=== PATIENT | male | born 1960 | race Caucasian/White ===

== ENCOUNTER → 2020-02-15 13:35 | Outpatient (BNVA) | payer MEDICARE, MEDICAID, SELFPAY | PROVIDERS: PCP Family Medicine; Referring Provider Family Medicine; Visit Provider Physician Assistant | DX: Z01.818 Encounter for other preprocedural examination (principal) | CPT/HCPCS: 99212 ==

== ENCOUNTER 2020-05-26 10:55 | Day surgery (SDC) | payer MEDICARE, MEDICAID, SELFPAY ==
--- NOTE | 2020-05-26 10:51 | P.CONAN_ITS ---
FORM[facility]LY [facility], [facility] Active Problems Active Problems: All Active Problems (Updated 03/30/20 @ 10:00 by Dariana small) Encounter for screening colonoscopy (Acute) Insomnia (Acute) History of substance abuse (Acute) Genital herpes in men (Acute) Dyslipidemia (Acute) Failed back syndrome (Acute) Erectile dysfunction (Acute) Past Medical History Medical History Depression Dyslipidemia Erectile dysfunction Failed back syndrome Genital herpes in men History of substance abuse Insomnia Family History Family History Father No problems noted. Mother Diabetes Brother HIV (human immunodeficiency virus infection) Hospice care patient Daughter Lupus Surgical History Surgical History H/O colonoscopy History of lumbar spinal fusion Social History Social History Alcohol intake: never Smoking Status: Former smoker Tobacco Type: Cigarette Substance Use Type: Crack/Cocaine, Former Substance User, Heroin and Marijuana Advance Directives: No Advance Directives Information Provided: Yes Meds Allergies Allergy/AdvReac Type Severity Reaction Status Date / Time No Known Allergies Allergy Verified 02/09/20 13:27 [No Known Allergies*] Home Medications Medication Instructions Recorded Confirmed Last Taken Type docusate sodium 100 mg capsule 100 mg PO DAILY 02/09/20 02/15/20 Unknown History methadone 10 mg/5 mL oral solution 105 mg PO DAILY ml 02/09/20 03/24/20 Unknown History gabapentin 600 mg tablet 600 mg PO TID 02/14/20 03/24/20 Unknown History Exam Exam Date and Time: May 26, 2020 1051 Airway Mallampati Class: II TM Dist: >3cm Neck ROM: Full Heart: RRR Lungs: CTA
[2020-05-26 11:07] VITALS: BP 124/85; PULSE 100; RESP 18; TEMP 36.3; O2SAT 97
[2020-05-26 11:22] VITALS: BMI 22.8
--- NOTE | 2020-05-26 11:34 | MHC.SHP ---
Pre-Procedural Eval Section B Chief Complaint: screening Details of Present Illness: Colon cancer screening/10 year interval No clinical changes since preprocedure visit Relevant Family History (Specify if Yes): No Relevant Social History: Tobacco Use (Former) Present Medications: see Short Stay Collaborative assessment Medical History: Significant History (Methadone maintainance, Hx substance abuse, Chronic back pain, ?Anxiety/depressive disorder) History of Previous Operations: Relevant previous surgery/procedure and date(s) (Spinal fusion, colonoscopy--10 yr ago-[facility]) Allergies: Allergies Allergy/AdvReac Type Severity Reaction Status Date / Time No Known Allergies Allergy Verified 02/09/20 13:27 [No Known Allergies*] Review of Systems Sugical H&P ROS: Negative: Constitution, Cardiovascular, Respiratory and Gastrointestinal and Yes, Specify: Psychiatric (?DX;Hx substance abuse) Exam Surgical H&P Exam: Normal: HEENT, Normal: Heart, Normal: Lungs, Normal: Extremities and Normal: Abdomen Plan Diagnosis/Plan: Unchanged I have reviewed the history and physical and performed a pertinent physical examination on my patient. No changes have occurred unless specified.Yes
[2020-05-26] MEDS: Lactated Ringers 1,000 ML 50 ML IVCONT (11:42)
[2020-05-26 12:19] VITALS: BP 83/57; PULSE 87; RESP 16; TEMP 36.6; O2SAT 94
--- NOTE | 2020-05-26 12:25 | PM.OP ---
Brief Operative Note Date of Service: 05/26/20 Pre-op diagnosis: COLON CANCER SCREENING-NON HIGH RISK Post-op diagnosis: other (NEGATIVE EXAM) Procedure: COLONOSCOPY Implants: NONE Surgeon: Jaymie Mcwilliams MD Anesthesia: MAC (MD MACK) Estimated blood loss (mL): 0 Pathology: none sent Condition: stable Disposition: PACU
[2020-05-26 12:26] VITALS: BP 97/64; PULSE 79; RESP 16; O2SAT 93
--- NOTE | 2020-05-26 12:29 | W.PM.OPN ---
Operative Note Operative Note Date of Service: 05/26/20 Narrative: Pre-op diagnosis: COLON CANCER SCREENING-NON HIGH RISK Post-op diagnosis: other (NEGATIVE EXAM) Procedure: COLONOSCOPY Implants: NONE Surgeon: Jaymie Mcwilliams MD Anesthesia: MAC (MD MACK) FINDINGS: DAFNE: PROSTATE NORMAL, SLIGHT DECREASED SPHINCTER TONE Scope inserted with no difficulty. Advanced easily through sigmoid, descending, transverse,ascending colon into the cecum. PREP: GOOD. AO AND VALVE WELL SEEN GOOD ROTATIONAL VIEWS ON WITHDRAWING SCOPE: NO MUCOSAL LESIONS WERE SEEN. ARV-CLEAR Estimated blood loss (mL): 0 Pathology: none sent Condition: stable Disposition: PACU PLAN: REPEAT ASYMPTOMATIC SCREENING IN 10 YEARS.
[2020-05-26 12:34] VITALS: BP 100/69; PULSE 73; RESP 16; O2SAT 96
== END 2020-05-26 13:15 | disposition home or self-care (01) ==
PROVIDERS: Visit Provider Internal Medicine Gastroenterology
PROC: 0DJD8ZZ Inspection of Lower Intestinal Tract, Via Natural or Artificial Opening Endoscopic (ICD-10-PCS; CPT 45378; principal; 2020-05-26 12:10)
DX: Z12.11 Encounter for screening for malignant neoplasm of colon (principal); Z87.891 Personal history of nicotine dependence; N52.9 Male erectile dysfunction, unspecified; M96.1 Postlaminectomy syndrome, not elsewhere classified; B00.9 Herpesviral infection, unspecified; Z79.899 Other long term (current) drug therapy
CPT/HCPCS: G0121

== ENCOUNTER → 2020-06-16 08:14 | Outpatient (BNVA) | payer MEDICARE, MEDICAID, SELFPAY | PROVIDERS: PCP Internal Medicine; Visit Provider Physician Assistant | DX: Z13.89 Encounter for screening for other disorder (principal) | CPT/HCPCS: 99212 ==

== ENCOUNTER 2020-11-25 09:46 | Outpatient (REF) | payer OTHER, SELFPAY ==
[2020-11-25 10:48] LABS: MANUAL DIFF FLAG NO
[2020-11-25 10:54] LABS: Basophils Percent Auto 0.1 % (0-2); Eosinophils Percent Auto 0.4 % (0-4); Hematocrit 40.6 % (42-52); Hemoglobin 13.7 g/dl (14.0-18.0); Imm Gran Abs Auto 0.05 X10*3/uL (0.00-0.03); Imm Gran Pct Auto 0.5 % (0.0-0.4); Lymphocytes Absolute Auto 0.8 X10*3/uL (1.2-4.9); Lymphocytes Percent Auto 7.1 % (20-40); Mean Corpuscular HGB Conc 33.7 g/dl (31.0-36.0); Mean Corpuscular Hemoglobin 29.8 pg (27.0-33.0); Mean Corpuscular Volume 88.3 fL (80-98); Mean Platelet Volume 9.2 fL (9.4-12.4); Monocytes Absolute Auto 0.4 X10*3/uL (0.1-1.2); Monocytes Percent Auto 3.5 % (2-11); Neutrophils Absolute Auto 9.8 X10*3/uL (2.0-8.3); Neutrophils Percent Auto 88.4 % (45-73); Platelet Count 228 X10*3/uL (160-400); Red Cell Distribution Width 13.1 % (11.0-16.0); White Blood Count 11.1 X10*3/uL (4.8-10.8)
[2020-11-25 11:05] LABS: Glucose Urine UA NEG (NEG); Leukocyte Esterase Urine NEG (NEG); Nitrite Urine NEG (NEG); Specific Gravity - Urine 1.015 (1.005-1.025); Urine Blood NEG (NEG); Urine Ketones NEG (NEG); Urine Protein NEG (NEG-TRACE)
[2020-11-25 11:11] LABS: Appearance Urine CLEAR; Color Urine YELLOW
[2020-11-25 11:23] LABS: Alanine Aminotransferase 14 U/L (0-40); Albumin Level 4.3 g/dL (3.5-5.0); Alkaline Phosphatase 58 U/L (39-117); Anion Gap 13 (12-20); Aspartate Amino Transferase 18 U/L (5-37); Bilirubin Total 0.8 mg/dL (0.0-1.0); Blood Urea Nitrogen 22 mg/dL (9-16); Calcium 9.8 mg/dL (8.4-10.2); Carbon Dioxide 29 mmol/L (22-29); Chloride 102 mmol/L (96-108); Cholesterol 216 mg/dL; Estimated Glomerular Filt Rate > 60; Glucose Fasting 138 mg/dL (60-99); HDL Cholesterol 80 mg/dL; LDL Cholesterol Calculated 130 mg/dl; Potassium 4.6 mmol/L (3.3-5.1); Sodium 139 mmol/L (135-145); Total Protein 7.2 g/dL (6.5-8.0); Triglycerides 31 mg/dL
[2020-11-25 11:38] LABS: HIV AB/AG Nonreactive (Nonreactive); HIV Num 1 0.06 S/CO (0.00-0.99)
[2020-11-25 11:44] LABS: Prostate Specific Antigen 0.24 ng/mL (<0.05-4.0); TSH reflex Free T4 0.71 uIU/mL (0.32-4.0)
[2020-11-25 11:47] LABS: Syphilis Screen Nonreactive (Nonreactive)
[2020-12-01 16:21] LABS: HSV 1 IgM IFA Negative (Negative); HSV 2 IgM IFA Negative (Negative)
== END 2020-11-25 09:47 | disposition home or self-care (01) ==
LOC: HO.LAB 09:46
PROVIDERS: PCP Internal Medicine; Visit Provider Internal Medicine
DX: N40.0 Benign prostatic hyperplasia without lower urinary tract symptoms (principal); A60.02 Herpesviral infection of other male genital organs; M96.1 Postlaminectomy syndrome, not elsewhere classified; E78.5 Hyperlipidemia, unspecified; N52.9 Male erectile dysfunction, unspecified; Z11.3 Encounter for screening for infections with a predominantly sexual mode of transmission
CPT/HCPCS: 36415; 80053; 80061; 81003; 84153; 84443; 85025; 86695; 86696; 86780; 87389

== ENCOUNTER 2021-02-20 10:22 | Outpatient (AMB) | payer OTHER, SELFPAY ==
--- NOTE | 2021-02-20 10:30 | MHC.PC.OV ---
Vital Signs 02/20/21 10:31 Height 5 ft 9 in Weight 155 lb BMI 22.8 BP 124/70 Blood Pressure Location Lt brachial Position Sitting Pulse 86 Pulse Source Pulse Oximeter Temp 97.3 F Temp Source Temporal Artery Scan Pulse Oximetry (%) 95 Oxygen Delivery Method Room Air Intake Visit Reasons: 4M Follow UP Office Electrician Required: No Accompanied by: Self / Same As Patient Allergies No Known Allergies (No Known Allergies*) Allergy (Verified 02/05/22 12:01) Medication List - Last Reconciled 02/20/21 by Fco Jaquez MD amitriptyline 75 mg PO BEDTIME baclofen 10 mg PO TID bupropion HCl 300 mg PO QAM docusate sodium (Colace) 200 mg (2 x 100 mg) PO BEDTIME gabapentin 800 mg PO TID 30 days methadone 55 mg PO DAILY mirtazapine 7.5 mg PO BEDTIME sildenafil 50 mg PO DAILY 30 days PRN trazodone 200 mg (2 x 100 mg) PO BEDTIME valacyclovir 500 mg PO DAILY Tobacco use date assessed: 10/18/20 HPI 4M Follow UP HPI Details Patient comes in today for his follow up visit States that he missed both of his appts. with [facility] a couple of months ago and was advised not to call for appointments anymore Have offered to refer patient to another pain management practice but he declined States that he is currently back on Methadone at 55 mg daily Notes that Gabapentin 600 mg TID used to help some but states that it does not seem to be helping much anymore lately Adds that he has been having problems getting an erection and would like to know what he can do for this, whether he needs to see a specialist or not Relates (+) fatigue but denies any headaches or dizziness Denies any chest pains, no SOB No nausea/vomiting, no abdominal pain No change in bowel habits noted Had some labs done a few months ago - to discuss his results [facility] Medical History (Updated 08/07/21 @ 15:00 by CHACE MarleyC) Chronic pain Opioid use disorder, severe, dependence Severe recurrent major depression Intentional overdose Impaired fasting glucose Chronic constipation Depression Insomnia History of substance abuse Genital herpes in men Dyslipidemia Failed back syndrome Erectile dysfunction Surgical History H/O colonoscopy History of lumbar spinal fusion Family History Father No problems noted. Mother Diabetes Brother HIV (human immunodeficiency virus infection) Hospice care patient Daughter Lupus Other Substance abuse Social History Household Members: Spouse Household Members Other:: Lives alone Housing: House Do you presently have visiting nurse or other home services: No Alcohol intake: never Patient Tobacco Use Status: Former Tobacco user e-Cigarette/Vaping Use: Never Used Second Hand Smoke Exposure: No Substance Use Type: Heroin and Marijuana service: No Current occupational status: disabled Sexual orientation: Straight/Heterosexual Cognitive needs: No Hearing needs: No Vision needs: No Questionnaire PHQ-9 Over the last 2 weeks, how often have you been bothered by any of the following problems? 1. Little interest or pleasure in doing things: several days 2. Feeling down, depressed, or hopeless: several days 3. Trouble falling or staying asleep, or sleeping too much: not at all 4. Feeling tired or having little energy: several days 5. Poor appetite or overeating: not at all 6. Feeling bad about yourself - or that you are a failure or have let yourself or your family down: not at all 7. Trouble concentrating on things, such as reading the newspaper or watching television: not at all 8. Moving or speaking so slowly that other people could have noticed. Or the opposite - being so fidgety or restless that you have been moving around a lot more than usual: not at all 9. Thoughts that you would be better off or of hurting yourself in some way: not at all Total score: 3 Depression Screening Interpretation: Positive Depression Screening Follow-up: Existing condition and In treatment 73013 - PHQ-9 Billing: Yes Source: Developed by Drs. Wilmer Gee, Darling Mejia, Juan Vidales and colleagues, with an educational saniya from [employer] Thrive Questionnaire Date Thrive assessed: 10/18/20 What is your living situation today?: I have a steady place to live Within the past 12 months, did the food you bought not last and you didn't have the money to get more?: Never true Within the past 12 months, did you worry whether your food would run out before you got money to buy more?: Never true Do you have trouble paying for medicines?: No Do you have trouble getting transportation to medical appointments?: No Do you have trouble paying your heating and electricity bill?: No Do you have trouble taking care of your child, family member or friend?: No Do you have trouble with day-to-day activities such as bathing, preparing meals, shopping, managing finances, etc.?: No Are you currently unemployed and looking for a job?: No Are you interested in more education?: No Currently or been in a relationship where the following occur: no concerns reported AUDIT C Alcohol Use Questionnaire (AUDIT-C) 1. How often do you have a drink containing alcohol?: 2-4 times a month 2. How many drinks containing alcohol do you have on a typical day when you are drinking?: 1 or 2 3. How often do you have six or more drinks on one occasion?: Never Total Score: 2 Score Reviewed/Action Taken: Yes Review of Systems Const Denies chills, Reports difficulty sleeping, Reports fatigue, Denies fever(s) and Denies headache(s) ENT Denies headache(s), Reports neck pain, Denies odynophagia, Denies sinus pain and Denies sore throat Card Denies chest pain, Denies palpitations and Denies dyspnea Resp Denies cough and Denies dyspnea GI Denies abdominal pain, Denies constipation, Denies heartburn, Denies diarrhea, Denies nausea, Denies odynophagia and Denies vomiting Reports erectile dysfunction (getting worse), Denies dysuria and Denies nocturia Musc Reports back pain (chronic - increasing lately) and Reports neck pain Neuro Denies headache(s) Psych Reports anxiety and Reports depression Endo Reports fatigue and Denies palpitations Physical exam (Primary Care) Vital Signs: Last Vital Signs Temp 97.3 F 02/20/21 10:31 Pulse 86 02/20/21 10:31 BP 124/70 02/20/21 10:31 Pulse Ox 95 02/20/21 10:31 Oxygen Delivery Method Room Air 02/20/21 10:31 BMI result Body Mass Index 22.8 Tobacco/Smoking Status: Tobacco use Status Tobacco use date assessed 10/18/20 02/20/21 10:34 Patient Tobacco Use Status Former Tobacco user 02/20/21 10:34 e-Cigarette/Vaping Use Never Used 02/20/21 10:34 PHQ-9: PHQ-9 Score PHQ-9: Total score 3 02/20/21 11:58 Depression Screening Interpretation: Positive Depression Screening Follow-up: Existing condition and In treatment Thrive Assessment: Date of Thrive Assessment Date Thrive assessed 10/18/20 02/20/21 10:34 Currently or been in a relationship where the following occur: no concerns reported Const General: no acute distress and alert HENMT Ears: TM's normal bilaterally Throat: Yes posterior oropharynx normal and Yes tonsils normal (no TP congestion noted) Neck Neck: Yes no lymphadenopathy and Yes supple Resp Auscultation: clear to auscultation bilaterally, no rales and no wheezes Cardio Rate: regular rate Rhythm: regular rhythm Heart sounds: no murmurs GI Palpation (GI): Soft to palpation, nontender and No hepatosplenomegaly present Back/Spine/Pelvis Cervical Spine: Cervical spine tenderness Thoracic/Lumbar Spine: lumbar spinal tenderness Extrem Other: (+) superficial varicosities noted over both lower legs posteriorly, especially over the right leg General: Yes no clubbing, cyanosis or edema Office Procedures Flu Questionnaire Does the patient have a severe egg allergy?: No Does the patient have severe life threatening allergies?: No Does the patient have a fever or illness today?: No Has the patient ever had Guillain-Wells Syndrome?: No Has the patient ever had any past reaction to a flu shot?: No Immunizations flu vacc [id number] 6mos up(PF) 60 mcg(15 mcgx4)/0.5 mL IM syringe Performing Provider: Fco Jaquez MD [facility] Administered by: JANAE Blandon on 02/20/21 10:37 Dose Route Admin Location Dispensed Lot Number Expiration Date NDC Shuttle Hand 0.5 mL IM Left Deltoid 0.5 mL [id number] 10/05/21 15653-445-40 [employer] Total Dispensed Waste n/a 0 % VIS Given Date VIS Provided VIS Publication Date 02/20/21 Single Vaccine 20 Eligibility Eligibility Date Funding Source Not [facility] Eligible 02/20/21 Private Results Reviewed Results Reviewed: Laboratory Tests 11/25/20 11/25/20 11/25/20 10:12 10:12 10:28 WBC 11.1 H Hgb 13.7 L Hct 40.6 L Plt Count 228 Sodium 139 Potassium 4.6 Creatinine 0.93 Estimated GFR > 60 Fasting Glucose 138 H Calcium 9.8 AST 18 ALT 14 Triglycerides 31 Cholesterol 216 LDL Cholesterol, Calc 130 HDL Cholesterol 80 Prostate Specific Ag 0.24 TSH 0.71 Ur Specific [place] 1.015 Urine Protein NEG Urine Glucose (UA) NEG Urine Blood NEG Coding Level of Care Code Admin Sign Off/No Billing Diagnoses Erectile dysfunction, unspecified erectile dysfunction type N52.9 Erectile dysfunction type: unspecified Dyslipidemia E78.5 Failed back syndrome M96.1 History of substance abuse F19.11 Chronic constipation K59.09 Insomnia, unspecified type G47.00 Insomnia type: unspecified Episode of recurrent major depressive disorder, unspecified depression episode severity F33.9 Active/Remission status: currently active Depression Type: major depressive disorder Major depression episode severity: unspecified Major depression recurrence: recurrent Additional Codes PHQ-9 - 07577 - PHQ-9 Billing: Yes ([id number])
[2021-02-20 10:31] VITALS: BP 124/70; PULSE 86; TEMP 36.3; O2SAT 95; BMI 22.8
== END 2021-02-20 11:18 | disposition home or self-care (01) ==
LOC: HO.HMGH 10:22
PROVIDERS: PCP Internal Medicine; Visit Provider Internal Medicine
DX: N52.9 Male erectile dysfunction, unspecified (principal); E78.5 Hyperlipidemia, unspecified; M96.1 Postlaminectomy syndrome, not elsewhere classified; F19.11 Other psychoactive substance abuse, in remission; K59.09 Other constipation; G47.00 Insomnia, unspecified; F33.9 Major depressive disorder, recurrent, unspecified
CPT/HCPCS: 96127; 99499

== ENCOUNTER → 2021-06-21 13:06 | Outpatient (REF) | payer OTHER, SELFPAY ==
[2021-06-21 13:22] LABS: MANUAL DIFF FLAG NO
--- NOTE | 2021-06-21 13:23 | ECG_ITS ---
Test Reason : F19.11 Blood Pressure : / mmHG Vent. Rate : 087 BPM Atrial Rate : 087 BPM P-R Int : 176 ms QRS Dur : 088 ms QT Int : 370 ms P-R-T Axes : 077 069 068 degrees QTc Int : 445 ms Normal sinus rhythm Normal ECG When compared with ECG of 31-OCT-2017 14:15, No significant change was found Referred By: Fco Jaquez Electronically Signed By:YAZMIN PARRA
[2021-06-21 14:03] LABS: Basophils Percent Auto 0.5 % (0-2); Eosinophils Absolute Auto 0.1 X10*3/uL (0.0-0.4); Eosinophils Percent Auto 2.9 % (0-4); Hematocrit 36.8 % (42.0-52.0); Hemoglobin 12.1 g/dl (14.0-18.0); Imm Gran Abs Auto 0.01 X10*3/uL (0.00-0.03); Imm Gran Pct Auto 0.3 % (0.0-0.4); Lymphocytes Absolute Auto 1.4 X10*3/uL (1.2-4.9); Lymphocytes Percent Auto 37.2 % (20-40); Mean Corpuscular HGB Conc 32.9 g/dl (31.0-36.0); Mean Corpuscular Volume 91.3 fL (80.0-98.0); Mean Platelet Volume 9.5 fL (9.4-12.4); Monocytes Absolute Auto 0.3 X10*3/uL (0.1-1.2); Monocytes Percent Auto 8.4 % (2-11); Neutrophils Absolute Auto 1.9 x10*3/uL (2.0-8.3); Neutrophils Percent Auto 50.7 % (45-73); Platelet Count 190 X10*3/uL (160-400); Red Blood Count 4.03 X10*6/uL (4.60-5.80); Red Cell Distribution Width 12.7 % (11.0-16.0); White Blood Count 3.8 X10*3/uL (4.8-10.8)
[2021-06-21 14:12] LABS: Estimated Average Glucose 117 mg/dL; Hemoglobin A1c % 5.7 %
[2021-06-21 14:28] LABS: Alanine Aminotransferase 13 U/L (0-40); Alkaline Phosphatase 65 U/L (39-117); Anion Gap 10 (12-20); Aspartate Amino Transferase 15 U/L (5-37); Bilirubin Total 0.2 mg/dL (0.0-1.0); Blood Urea Nitrogen 25 mg/dL (9-16); Calcium 9.6 mg/dL (8.4-10.2); Carbon Dioxide 34 mmol/L (22-29); Chloride 101 mmol/L (96-108); Cholesterol 181 mg/dL; Estimated Glomerular Filt Rate > 60; Glucose Fasting 116 mg/dL (60-99); HDL Cholesterol 53 mg/dL; LDL Cholesterol Calculated 117 mg/dl; Sodium 141 mmol/L (135-145); Total Protein 6.7 g/dL (6.5-8.0); Triglycerides 58 mg/dL
[2021-06-21 14:29] LABS: Appearance Urine CLEAR; Color Urine YELLOW; Glucose Urine UA NEG (NEG); Leukocyte Esterase Urine NEG (NEG); Nitrite Urine NEG (NEG); PH 5.5 (5.0-8.0); Specific Gravity - Urine >= 1.030 (1.005-1.025); Urine Blood NEG (NEG); Urine Ketones 5 MG/DL (NEG); Urine Protein NEG (NEG-TRACE)
[2021-06-21 14:51] LABS: TSH reflex Free T4 2.29 uIU/mL (0.32-4.0)
== END ==
LOC: HO.CARD 13:06
PROVIDERS: PCP Internal Medicine; Visit Provider Internal Medicine
DX: F19.11 Other psychoactive substance abuse, in remission (principal); I10 Essential (primary) hypertension; E78.00 Pure hypercholesterolemia, unspecified; R73.01 Impaired fasting glucose
CPT/HCPCS: 36415; 80053; 80061; 81003; 83036; 84443; 85025; 93005

== ENCOUNTER 2021-07-20 13:13 | Inpatient (IN) | payer OTHER, SELFPAY ==
--- NOTE | ~2021-07-20 | XR_ITS ---
EXAMINATION: XR THORACIC SPINE CLINICAL INFORMATION: Slipped in shower. Pain. COMPARISON: 01/28/2020 TECHNIQUE: 3 views of the thoracic spine were obtained. FINDINGS: No acute fracture or traumatic malalignment. Vertebral body heights maintained. Mild thoracic kyphosis. Endplate osteophytes present throughout the thoracic spine, with accompanying endplate sclerosis and mild narrowing of the midthoracic intervertebral disc spaces. There are also degenerative changes of the lower cervical spine from C4 -- C6. Paraspinal soft tissues unremarkable.. XR/XR thoracic spine 3V IMPRESSION: No acute fracture or traumatic malalignment. Thoracic spondylosis as described.
[2021-07-20 13:39] VITALS: BP 138/100; BP 143/90; PULSE 81; PULSE 90; RESP 18; TEMP 36.7; O2SAT 98; O2SAT 99; BMI 21.2
--- NOTE | 2021-07-20 14:22 | ED.PSYCH ---
HPI - Psych General Chief Complaint: Psychiatric Symptoms Stated Complaint: SI,OVERDOSE YESTERDAY Time Seen by Provider: 07/20/21 13:45 Source: patient and EMS Mode of arrival: EMS Limitations: no limitations History of Present Illness HPI Narrative: 61-year-old male with a history of opiate use disorder here with reports of intentional overdose on fentanyl yesterday. Patient tells me he has been using 2 bundles of heroin daily. He snorts them. He took 4 bundles yesterday in an attempt to kill himself. He tells me he woke up this morning and was upset he was not successful. He reports increased depression over the last few days and states I just do not Wanna be here anymore. No additional substance use. No physical complaints. Patient does report he has chronic low back pain which is why he uses fentanyl. Related Data Home Medications Medication Instructions Recorded Confirmed baclofen 10 mg tablet 10 mg PO TID 10/18/20 07/20/21 Previous Rx's Medication Instructions Recorded gabapentin 800 mg tablet 800 mg PO TID 30 Days #90 tab 02/20/21 valacyclovir 500 mg tablet 500 mg PO DAILY #90 tab 04/29/21 amitriptyline 75 mg tablet 75 mg PO BEDTIME #30 tab 06/26/21 bupropion HCl 300 mg 24 hr tablet, 300 mg PO QAM #90 tab 06/26/21 extended release trazodone 100 mg tablet 200 mg PO BEDTIME #60 tab 06/26/21 Allergies Allergy/AdvReac Type Severity Reaction Status Date / Time No Known Allergies Allergy Verified 07/20/21 13:38 [No Known Allergies*] Review of Systems Review of Systems: Yes all other systems are reviewed and are negative Constitutional: Constitutional: Reports no additional constitutional complaints, Denies body ache(s), Denies chills, Denies fever(s), Denies headache(s) and Denies weakness Eyes: Eyes: Reports no additional eye complaints and Denies change in vision ENT: Reports system reviewed and no additional complaints, except as documented, Denies dizziness, Denies headache(s), Denies nasal congestion, Denies nasal discharge and Denies neck pain Cardiovascular: Cardiovascular: Reports no additional cardiovascular complaints, Denies chest pain, Denies leg edema and Denies dyspnea Respiratory: Respiratory: Reports no additional respiratory complaints, Denies cough and Denies dyspnea Gastrointestinal: Gastrointestinal: Reports no additional gastrointestinal complaints, Denies abdominal pain, Denies diarrhea, Denies nausea and Denies vomiting Genitourinary: Genitourinary: Denies urinary incontinence Musculoskeletal: Musculoskeletal: Reports no additional musculoskeletal complaints, Reports back pain, Denies arthralgias, Denies joint swelling, Denies neck pain, Denies numbness and Denies tingling Integumentary/Breasts: Skin/Breast: Reports system reviewed and no additional complaints, except as docu and Denies rash Neurologic: Reports system reviewed and no additional complaints, except as documented, Denies Abnormal speech present, Denies dizziness, Denies headache(s), Denies numbness, Denies tingling and Denies weakness Psychiatric: Psychiatric: Reports suicidal ideation PMFSH Past Medical History Attestation statement: The following information was validated with the patient. Source: old records reviewed and nursing notes reviewed Medical History Chronic constipation Depression Dyslipidemia Erectile dysfunction Failed back syndrome Genital herpes in men History of substance abuse Impaired fasting glucose Insomnia Surgical History H/O colonoscopy History of lumbar spinal fusion Family History Family History Father No problems noted. Mother Diabetes Brother HIV (human immunodeficiency virus infection) Hospice care patient Daughter Lupus Other Substance abuse Social History Social History Household Members: Friend(s) Household Members Other:: Lives alone Housing: House Alcohol intake: never Patient Tobacco Use Status: Former Tobacco user e-Cigarette/Vaping Use: Never Used Second Hand Smoke Exposure: No Use of substances other than those prescribed or required for medical reasons: Yes Substance Use Type: Crack/Cocaine, Former Substance User, Heroin and Marijuana Advance Directives: No Advance Directives Information Provided: No service: No Current occupational status: disabled Cognitive needs: No Hearing needs: No Vision needs: No Physical Exam Vital Signs: Vital Signs: Last Vital Signs Temp 98.1 F 07/20/21 13:39 Pulse 81 07/20/21 13:39 Resp 18 07/20/21 13:39 BP 143/90 H 07/20/21 13:39 Pulse Ox 99 07/20/21 13:39 BMI result Body Mass Index 21.2 Const: General: cooperative, healthy appearing, comfortable and no acute distress Orientation/consciousness: patient oriented x3 Limitations: no limitations HEENT: Head: Yes normal to inspection Ears: hearing grossly normal bilaterally General nose exam: Normal external nose present Face and sinus: Yes normal facial exam Mouth: Normal oral and palatal mucosa present Throat: Yes posterior oropharynx normal Eyes: General: appearance normal, both eyes and all related structures Pupils: Equal, round and reactive pupils present Neck: Neck: Yes normal visual inspection Chest: Chest palpation & inspection: normal inspection of the chest Resp: Effort & Inspection: normal respiratory effort Auscultation: clear to auscultation bilaterally Cardio: Rate: regular rate Rhythm: regular rhythm Peripheral pulses: Peripheral pulses 2+ throughout GI: Inspection: Yes normal to inspection Palpation (GI): Soft to palpation and nontender Auscultation: normal bowel sounds Back/Spine/Pelvis: Thoracic/Lumbar Spine: thoracic and lumbar spine normal to inspection Skin: General skin exam: no rashes or lesions noted Neuro: General: patient oriented x3, no focal motor deficits and normal sensation to monofilament Cranial nerves: Yes CN's II-XII intact bilaterally and Yes Equal, round and reactive pupils present Cognition (Neuro): normal cognition Speech: No Abnormal speech present Gait exam (Neuro): Normal gait present Motor exam (neuro): 5/5 motor strength present throughout Extrem: General: Yes normal to inspection and Yes no pedal edema Course Course Course Narrative: 61-year-old male here with reports of feeling depressed, suicidal with an intentional OD on fentanyl yesterday. Will obtain labs, [facility], covid screen. Per nursing patient is an inpatient bedsearch, section 12 [facility] - Psych Medical Records Attestation: I reviewed the patient's medical records. Lab Data Attestation: I reviewed the patient's lab results. Labs: Lab Results 07/20/21 07/20/21 Range/Units 13:41 13:50 Urine Opiates Screen Not Detected (Not Detect) Urine Fentanyl Screen POSITIVE H (Not Detect) Ur Barbiturates Screen Not Detected (Not Detect) Ur Phencyclidine Scrn Not Detected (Not Detect) Ur Amphetamines Screen Not Detected (Not Detect) U Benzodiazepines Scrn Not Detected (Not Detect) Urine Cocaine Screen Not Detected (Not Detect) U Marijuana (THC) Screen POSITIVE H (Not Detect) COVID-19 (MAT) Negative (Negative) COVID-19 Clin Com See Note Discharge Plan Discharge Clinical Impression: Intentional overdose Patient Disposition: Still a Patient Prescriptions: No Action valacyclovir 500 mg tablet 500 mg PO DAILY Qty: 90 0RF amitriptyline 75 mg tablet 75 mg PO BEDTIME Qty: 30 0RF trazodone 100 mg tablet 200 mg PO BEDTIME Qty: 60 0RF bupropion HCl 300 mg tablet extended release 24 hr 300 mg PO QAM Qty: 90 0RF baclofen 10 mg tablet 10 mg PO TID 0RF gabapentin 800 mg tablet 800 mg PO TID 30 Days Qty: 90 2RF
[2021-07-20 14:24] LABS: Amphetamine Screen Urine Not Detected (Not Detect); Barbiturates, Urine Not Detected (Not Detect); Benzodiazepines Screen Urine Not Detected (Not Detect); Cannabinoid Screen Urine POSITIVE (Not Detect); Cocaine Screen Urine Not Detected (Not Detect); Fentanyl, urine POSITIVE (Not Detect); Opiate Screen Urine Not Detected (Not Detect); Phencyclidine Screen Urine Not Detected (Not Detect)
[2021-07-20 14:29] LABS: COVID-19 Test Negative (Negative); IDNOW Serial# 16C4AD1C
--- NOTE | 2021-07-20 16:01 | PHA.MEDREC ---
Pharmacy Consult ? Medication Reconciliation Pharmacy has completed the medication reconciliation. Spoke with the patient who stated the last time he took his medications was 07/19.
[2021-07-20 17:44] LABS: MANUAL DIFF FLAG NO
[2021-07-20] MEDS: valACYclovir HCL 500 MG TABLET PO (17:53)
[2021-07-20] MEDS: Gabapentin 400 MG CAPSULE 800 MG PO ×2 (17:53→20:08)
[2021-07-20] MEDS: Acetaminophen 325 MG TABLET 650 MG PO (17:54)
[2021-07-20 18:02] LABS: Ethanol < 10 mg/dL
[2021-07-20 18:05] LABS: Basophils Percent Auto 0.6 % (0-2); Eosinophils Absolute Auto 0.1 X10*3/uL (0.0-0.4); Eosinophils Percent Auto 0.9 % (0-4); Hematocrit 39.6 % (42.0-52.0); Hemoglobin 13.5 g/dl (14.0-18.0); Imm Gran Abs Auto 0.01 X10*3/uL (0.00-0.03); Imm Gran Pct Auto 0.2 % (0.0-0.4); Lymphocytes Absolute Auto 1.4 X10*3/uL (1.2-4.9); Lymphocytes Percent Auto 26.5 % (20-40); Mean Corpuscular HGB Conc 34.1 g/dl (31.0-36.0); Mean Corpuscular Hemoglobin 29.9 pg (27.0-33.0); Mean Corpuscular Volume 87.8 fL (80.0-98.0); Mean Platelet Volume 9.2 fL (9.4-12.4); Monocytes Absolute Auto 0.4 X10*3/uL (0.1-1.2); Monocytes Percent Auto 6.8 % (2-11); Neutrophils Absolute Auto 3.5 x10*3/uL (2.0-8.3); Platelet Count 261 X10*3/uL (160-400); Red Blood Count 4.51 X10*6/uL (4.60-5.80); Red Cell Distribution Width 12.6 % (11.0-16.0); White Blood Count 5.4 X10*3/uL (4.8-10.8)
[2021-07-20 18:07] LABS: Alanine Aminotransferase 17 U/L (0-40); Albumin Level 4.2 g/dL (3.5-5.0); Alkaline Phosphatase 63 U/L (39-117); Anion Gap 13 (12-20); Aspartate Amino Transferase 14 U/L (5-37); Bilirubin Direct 0.2 mg/dL (0.0-0.5); Bilirubin Total 0.6 mg/dL (0.0-1.0); Blood Urea Nitrogen 27 mg/dL (9-16); Calcium 10.1 mg/dL (8.4-10.2); Carbon Dioxide 28 mmol/L (22-29); Chloride 105 mmol/L (96-108); Creatinine Clr Calc Pharmacy 73.1; Estimated Glomerular Filt Rate > 60; Glucose Random 146 mg/dL (60-115); Potassium 4.7 mmol/L (3.3-5.1); Sodium 141 mmol/L (135-145); Total Protein 7.2 g/dL (6.5-8.0)
[2021-07-20 18:19] LABS: Acetaminophen LAB < 1 mcg/mL (<30); Salicylate < 5.0 mg/dL (15-30)
[2021-07-20] MEDS: traZODone HCL 100 MG TABLET 200 MG PO (20:08)
[2021-07-20] MEDS: Amitriptyline HCl 25 MG TABLET 75 MG PO (21:21)
[2021-07-20] MEDS: Baclofen 10 MG TABLET PO (21:21)
[2021-07-20 22:51] VITALS: BP 130/90; PULSE 85; RESP 16; TEMP 36.8; O2SAT 99; BMI 20.5
--- NOTE | 2021-07-20 23:42 | PC.ADMIT ---
Pt is a 61y/o male admitted on CV after endorsing SI with a plan to overdose or crash his car. Pt reports he overdosed on 4 bundles of fentanyl last night and uses daily with suicidal intent.Pt is alert and oriented X3, covid negative, Tox screen positive for Fentanyl and Marijuana. Pt endorses SI and expresses feelings of hopelessness/helplessness. Speech is regular with normal tone, rhythm and drew. Pt reports struggling with heavy substance use with increased depression. Pt declined Flu shot saying that he has had it. Pt is quite cooperative and engaging.
--- NOTE | 2021-07-21 | ECG_ITS ---
Test Reason : routine check Blood Pressure : / mmHG Vent. Rate : 100 BPM Atrial Rate : 100 BPM P-R Int : 160 ms QRS Dur : 092 ms QT Int : 354 ms P-R-T Axes : 075 075 061 degrees QTc Int : 456 ms Normal sinus rhythm Normal ECG No previous ECGs available Referred By: Ivelisse Small Electronically Signed By:Vignesh Wise
[2021-07-21 06:00] VITALS: BP 141/94; PULSE 72; RESP 16; TEMP 36.6; O2SAT 99
[2021-07-21] MEDS: Gabapentin 400 MG CAPSULE 800 MG PO ×3 (09:03→21:28)
[2021-07-21] MEDS: buPROPion HCl XL 300 MG TAB.ER.24H PO (09:03)
[2021-07-21] MEDS: valACYclovir HCL 500 MG TABLET PO (09:04)
[2021-07-21] MEDS: Baclofen 10 MG TABLET PO ×3 (09:04→21:29)
--- NOTE | 2021-07-21 10:39 | PC.NURSE ---
Addendum entered by Halima Laguerre RN 07/21/21 10:47: Note error, CORRECT DOSE IS: Suboxone verified at 8/2mg TID Original Note: Suboxone verified today with [facility] clinic in [place], take 1 film 2/8mg TID. Last picked up 22 films on July 18
[2021-07-21] MEDS: Buprenorphine/Naloxone 8/2 mg TAB.SUBL 1 TAB SUBLINGUAL ×3 (12:59→21:29)
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
[2021-07-21 21:15] VITALS: BP 124/68; PULSE 107; RESP 19; TEMP 36.4; O2SAT 96
[2021-07-21] MEDS: traZODone HCL 100 MG TABLET 200 MG PO (21:28)
[2021-07-21] MEDS: lamoTRIgine 25 MG TABLET PO (21:29)
[2021-07-21] MEDS: Amitriptyline HCl 25 MG TABLET 75 MG PO (21:29)
[2021-07-21] MEDS: Acetaminophen 325 MG TABLET 650 MG PO (21:32)
--- NOTE | 2021-07-21 23:52 | PC.NURSE ---
Pt. reported he twisted his body in the shower and felt he did something to his lower left back. Pt. has a hx of chronic back pain, 4 spinal fusions, hardware in the back, fentanyl overdose. Pt. reported pain 10/10. He was medicated with scheduled suboxone 8/2mg and tylenol 650mg at 21:29. Pt. then went to his room and was lying in bed moaning loudly in pain. PC and [employer] attended pt. He was given a warm compress. He stated to staff that he feels something slipped. RN contacted Dayan Wiley NP. X-rays and motrin 800mg PRN ordered. Pt. brought down to X-ray. He yells out in pain with little to no stimuli. Pt. assisted back to bed by RN and MHA. Pt. repositioned with pillow behind left side and between legs for comfort. Pt. to receive 800mg Motrin and Hydroxyzine 25mg. Provider aware of pt. status post X-ray. Results pending.
[2021-07-21] MEDS: Ibuprofen 800 MG TABLET PO (23:58)
[2021-07-21] MEDS: hydrOXYzine HCL 25 MG TABLET PO (23:58)
[2021-07-22 06:00] VITALS: BP 102/62; PULSE 73; RESP 16
[2021-07-22] MEDS: Buprenorphine/Naloxone 8/2 mg TAB.SUBL 1 TAB SUBLINGUAL ×3 (09:38→20:22)
[2021-07-22] MEDS: Gabapentin 400 MG CAPSULE 800 MG PO ×3 (09:38→20:24)
[2021-07-22] MEDS: valACYclovir HCL 500 MG TABLET PO (09:38)
[2021-07-22] MEDS: Baclofen 10 MG TABLET PO ×3 (09:38→20:25)
[2021-07-22] MEDS: buPROPion HCl XL 300 MG TAB.ER.24H PO (09:38)
[2021-07-22] MEDS: Milk of Magnesia 30 ML ORAL.SUSP PO (13:06)
[2021-07-22 18:00] VITALS: BP 114/66; PULSE 90; RESP 16; TEMP 36.6; O2SAT 98
--- NOTE | 2021-07-22 18:41 | HO.PSYCHPN ---
Subjective Subjective Date of Service: 07/22/21 Reason For Visit: SI, depression Interim History: Review of xray of back with pt-no new issues are found. Pt reports he thought he injured himself getting out of bed and in the shower, but is feeling relief today. Pain is in better control with Suboxone he reports. Abundant sx of depression, guilt, anger for failure of suicide attempt. I cannot even kill myself right. Tolerating regime, denies SE Medication Compliance: Yes Side effects from medications: No Attending Groups: Intermittent Review of Systems Acute medical concerns: No Medical Review of Systems: unchanged Mental Status Exam Mental Status Exam Patient Appearance: Fatigued Patient Orientation: Person, Place, Time and Situation Level of Consciousness: Alert Patient Behavior: Appropriate, Talkative, Cooperative, Anxious, Fatigued, Isolative and Good Eye Contact Mood Description: Depressed Affect Description: Flat Patient Cognition Impaired: No Ability to Follow Directions: Good Speech Pattern: Spontaneous Speech Memory Description: Intact Hallucinations: None Delusions: Not Present Perceptual Disturbances: Depersonalization and Derealization Thought Process: Distracted and Rumination Thought Content: positive for [place], positive for Circumstantial, positive for Perseveration and positive for Suicidal Ideation Depressive Symptoms: Increased Anxiety, Insomnia, Diff. Making Decisions, Muscle Tension, Increased Irritability, Difficulty Sleeping, Changes in Appetite, Muscle Pain, Crying Spells, Reduced Sex Drive, Loss of Int. in Activity, Feelings of Worthlessness, Hopelessness, Isolating-Friends/Family, Feelings of Guilt, Unexplained Headaches, Unhappiness, Increased Fatigue, Thoughts of /Suicide, Low Self Esteem, Loss of Energy, Difficulty Concentrating and Back Pain Judgement: Fair Diagnostics Vital Signs (24Hr): Vital Signs - 24 hr 07/21/21 21:15 07/22/21 06:00 Temperature 97.5 F Pulse Rate 107 H 73 Respiratory Rate 19 16 Blood Pressure 124/68 102/62 Pulse Oximetry 96 BMI result Body Mass Index 20.5 Labs Results: 07/20/21 17:38 07/20/21 17:38 Imaging Radiology Impressions: ITS Impressions Thoracic Spine X-Ray 07/21/21 23:25 IMPRESSION: No acute fracture or traumatic malalignment. Thoracic spondylosis as described. Medications Medications Current Medications Acetaminophen (Acetaminophen 325 Mg Tablet) 650 mg PO Q6H PRN PRN Reason: Headache/Pain Mild Scale (1-3) Last Admin: 07/21/21 21:32 Dose: 650 mg Documented by: Al Hydroxide/Mg Hydroxide (Magnesium Hydrox/Alum Hydrox 30 Ml Oral.Susp) 30 ml PO Q6H PRN PRN Reason: Heartburn/Nausea Amitriptyline HCl (Amitriptyline Hcl 25 Mg Tablet) 75 mg PO BEDTIME [facility] Last Admin: 07/21/21 21:29 Dose: 75 mg Documented by: Baclofen (Baclofen 10 Mg Tablet) 10 mg PO TID [facility] Last Admin: 07/22/21 14:31 Dose: 10 mg Documented by: Buprenorphine/Naloxone (Buprenorphine/Naloxone 8/2 Mg Tab.Subl) 1 tab SUBLINGUAL TID [facility] Last Admin: 07/22/21 14:31 Dose: 1 tab Documented by: Bupropion HCl (Bupropion Hcl Xl 300 Mg Tab.Er.24h) 300 mg PO DAILY [facility] Last Admin: 07/22/21 09:38 Dose: 300 mg Documented by: Gabapentin (Gabapentin 400 Mg Capsule) 800 mg PO TID [facility] Last Admin: 07/22/21 14:31 Dose: 800 mg Documented by: Hydroxyzine HCl (Hydroxyzine Hcl 25 Mg Tablet) 25 mg PO Q6H PRN PRN Reason: Anxiety Last Admin: 07/21/21 23:58 Dose: 25 mg Documented by: Ibuprofen (Ibuprofen 800 Mg Tablet) 800 mg PO Q8H PRN PRN Reason: mod-severe pain Last Admin: 07/21/21 23:58 Dose: 800 mg Documented by: Lamotrigine (Lamotrigine 25 Mg Tablet) 25 mg PO BEDTIME [facility] Last Admin: 07/21/21 21:29 Dose: 25 mg Documented by: Magnesium Hydroxide (Milk Of Magnesia 30 Ml Oral.Susp) 30 ml PO DAILY PRN PRN Reason: Constipation Last Admin: 07/22/21 13:06 Dose: 30 ml Documented by: Trazodone HCl (Trazodone Hcl 100 Mg Tablet) 200 mg PO BEDTIME [facility] Last Admin: 07/21/21 21:28 Dose: 200 mg Documented by: Valacyclovir HCl (Valacyclovir Hcl 500 Mg Tablet) 500 mg PO DAILY [facility] Last Admin: 07/22/21 09:38 Dose: 500 mg Documented by: Allergies Allergies Allergy/AdvReac Type Severity Reaction Status Date / Time No Known Allergies Allergy Verified 07/20/21 13:38 [No Known Allergies*] Assessment & Plan Assessment & Plan (1) Severe recurrent major depression: Status: Acute Code(s): F33.2 - Major depressive disorder, recurrent severe without psychotic features (2) Opioid use disorder, severe, dependence: Status: Acute Code(s): F11.20 - Opioid dependence, uncomplicated (3) Chronic pain: Status: Acute Code(s): G89.29 - Other chronic pain (4) Intentional overdose: Status: Acute Code(s): T50.902A - Poisoning by unspecified drugs, medicaments and biological substances, intentional self-harm, initial encounter Plan 61 yo male, s/p intentional fentanyl overdose in a suicide attempt. Hx of depression, opioid dependence, chronic pain s/p four spinal fusions.New Suboxone pt with [facility]. Pt reports he has not been able to manage his symptoms and as a result attempted to take his life. Plan: Collateral contact with PCP, MAT Team Addictions consult Review of medications with pt and trials. Begin Lamictal 25 mg daily EKG Integrate into milieu, full group program Aftercare planning-?residential options for pt 07/22/21- Continue current plan of care. I spent minutes with the patient and/or on the patient floor today, greater than?50% of which was spent counseling/coordinating care. Patient educated on: medication risk/benefits and therapeutic strategies Informed Consent: understands and further education needed Reason for contiued inpatient stay Substantial Risk for: harm to self, inability to function and rapid decompensation
[2021-07-22] MEDS: hydrOXYzine HCL 25 MG TABLET PO (20:21)
[2021-07-22] MEDS: traZODone HCL 100 MG TABLET 200 MG PO (20:21)
[2021-07-22] MEDS: Amitriptyline HCl 25 MG TABLET 75 MG PO (20:22)
[2021-07-22] MEDS: lamoTRIgine 25 MG TABLET PO (20:24)
[2021-07-23 06:00] VITALS: BP 128/72; PULSE 96; RESP 18; TEMP 36.6; O2SAT 98
[2021-07-23] MEDS: Gabapentin 400 MG CAPSULE 800 MG PO ×3 (09:53→20:03)
[2021-07-23] MEDS: Buprenorphine/Naloxone 8/2 mg TAB.SUBL 1 TAB SUBLINGUAL ×3 (09:53→20:03)
[2021-07-23] MEDS: valACYclovir HCL 500 MG TABLET PO (09:53)
[2021-07-23] MEDS: Baclofen 10 MG TABLET PO ×3 (09:53→20:04)
[2021-07-23] MEDS: buPROPion HCl XL 300 MG TAB.ER.24H PO (09:53)
[2021-07-23] MEDS: Milk of Magnesia 30 ML ORAL.SUSP PO (11:54)
--- NOTE | 2021-07-23 15:40 | HO.PSYCHPN ---
Subjective Subjective Date of Service: 07/23/21 Reason For Visit: SI, depression Interim History: Reports some pain relief with Suboxone. Yareli Loving NP from addictions will meet with pt on 07/24. Pt continues to express remorse that his attempt was not a success. Ruminative about family's lack of support of him and feeling there is no purpose in living. Reports sx of constipation, will trial MOM Medication Compliance: Yes Side effects from medications: No Attending Groups: Intermittent Review of Systems Acute medical concerns: No Medical Review of Systems: unchanged Mental Status Exam Mental Status Exam Patient Appearance: Fatigued Patient Orientation: Person, Place, Time and Situation Level of Consciousness: Alert Patient Behavior: Appropriate, Talkative, Cooperative, Anxious, Fatigued, Isolative and Good Eye Contact Mood Description: Depressed Affect Description: Flat Patient Cognition Impaired: No Ability to Follow Directions: Good Speech Pattern: Spontaneous Speech Memory Description: Intact Hallucinations: None Delusions: Not Present Perceptual Disturbances: Depersonalization and Derealization Thought Process: Distracted and Rumination Thought Content: positive for [place], positive for Circumstantial, positive for Perseveration and positive for Suicidal Ideation Depressive Symptoms: Increased Anxiety, Insomnia, Diff. Making Decisions, Muscle Tension, Increased Irritability, Difficulty Sleeping, Changes in Appetite, Muscle Pain, Crying Spells, Reduced Sex Drive, Loss of Int. in Activity, Feelings of Worthlessness, Hopelessness, Isolating-Friends/Family, Feelings of Guilt, Unexplained Headaches, Unhappiness, Increased Fatigue, Thoughts of /Suicide, Low Self Esteem, Loss of Energy, Difficulty Concentrating and Back Pain Judgement: Fair Diagnostics Vital Signs (24Hr): Vital Signs - 24 hr 07/22/21 18:00 07/23/21 06:00 Temperature 97.8 F 97.9 F Pulse Rate 90 96 Respiratory Rate 16 18 Blood Pressure 114/66 128/72 Pulse Oximetry 98 98 BMI result Body Mass Index 20.5 Labs Results: 07/20/21 17:38 07/20/21 17:38 Imaging Radiology Impressions: ITS Impressions Thoracic Spine X-Ray 07/21/21 23:25 IMPRESSION: No acute fracture or traumatic malalignment. Thoracic spondylosis as described. Medications Medications Current Medications Acetaminophen (Acetaminophen 325 Mg Tablet) 650 mg PO Q6H PRN PRN Reason: Headache/Pain Mild Scale (1-3) Last Admin: 07/21/21 21:32 Dose: 650 mg Documented by: Al Hydroxide/Mg Hydroxide (Magnesium Hydrox/Alum Hydrox 30 Ml Oral.Susp) 30 ml PO Q6H PRN PRN Reason: Heartburn/Nausea Amitriptyline HCl (Amitriptyline Hcl 25 Mg Tablet) 75 mg PO BEDTIME [facility] Last Admin: 07/22/21 20:22 Dose: 75 mg Documented by: Baclofen (Baclofen 10 Mg Tablet) 10 mg PO TID [facility] Last Admin: 07/23/21 15:07 Dose: 10 mg Documented by: Buprenorphine/Naloxone (Buprenorphine/Naloxone 8/2 Mg Tab.Subl) 1 tab SUBLINGUAL TID [facility] Last Admin: 07/23/21 15:07 Dose: 1 tab Documented by: Bupropion HCl (Bupropion Hcl Xl 300 Mg Tab.Er.24h) 300 mg PO DAILY [facility] Last Admin: 07/23/21 09:53 Dose: 300 mg Documented by: Gabapentin (Gabapentin 400 Mg Capsule) 800 mg PO TID [facility] Last Admin: 07/23/21 15:07 Dose: 800 mg Documented by: Hydroxyzine HCl (Hydroxyzine Hcl 25 Mg Tablet) 25 mg PO Q6H PRN PRN Reason: Anxiety Last Admin: 07/22/21 20:21 Dose: 25 mg Documented by: Ibuprofen (Ibuprofen 800 Mg Tablet) 800 mg PO Q8H PRN PRN Reason: mod-severe pain Last Admin: 07/21/21 23:58 Dose: 800 mg Documented by: Lamotrigine (Lamotrigine 25 Mg Tablet) 25 mg PO BEDTIME [facility] Last Admin: 07/22/21 20:24 Dose: 25 mg Documented by: Magnesium Hydroxide (Milk Of Magnesia 30 Ml Oral.Susp) 30 ml PO DAILY PRN PRN Reason: Constipation Last Admin: 07/23/21 11:54 Dose: 30 ml Documented by: Trazodone HCl (Trazodone Hcl 100 Mg Tablet) 200 mg PO BEDTIME [facility] Last Admin: 07/22/21 20:21 Dose: 200 mg Documented by: Valacyclovir HCl (Valacyclovir Hcl 500 Mg Tablet) 500 mg PO DAILY [facility] Last Admin: 07/23/21 09:53 Dose: 500 mg Documented by: Allergies Allergies Allergy/AdvReac Type Severity Reaction Status Date / Time No Known Allergies Allergy Verified 07/20/21 13:38 [No Known Allergies*] Assessment & Plan Assessment & Plan (1) Severe recurrent major depression: Status: Acute Code(s): F33.2 - Major depressive disorder, recurrent severe without psychotic features (2) Opioid use disorder, severe, dependence: Status: Acute Code(s): F11.20 - Opioid dependence, uncomplicated (3) Chronic pain: Status: Acute Code(s): G89.29 - Other chronic pain (4) Intentional overdose: Status: Acute Code(s): T50.902A - Poisoning by unspecified drugs, medicaments and biological substances, intentional self-harm, initial encounter Plan 61 yo male, s/p intentional fentanyl overdose in a suicide attempt. Hx of depression, opioid dependence, chronic pain s/p four spinal fusions.New Suboxone pt with [facility]. Pt reports he has not been able to manage his symptoms and as a result attempted to take his life. Plan: Collateral contact with PCP, MAT Team Addictions consult Review of medications with pt and trials. Begin Lamictal 25 mg daily EKG Integrate into milieu, full group program Aftercare planning-?residential options for pt 07/22/21- Continue current plan of care. 07/23/21- Continue current plan of care. I spent minutes with the patient and/or on the patient floor today, greater than?50% of which was spent counseling/coordinating care. Patient educated on: medication risk/benefits and therapeutic strategies Informed Consent: understands and further education needed Reason for contiued inpatient stay Substantial Risk for: harm to self, inability to function and rapid decompensation
[2021-07-23 16:08] VITALS: BP 124/78; PULSE 82
[2021-07-23] MEDS: traZODone HCL 100 MG TABLET 200 MG PO (20:03)
[2021-07-23] MEDS: hydrOXYzine HCL 25 MG TABLET PO (20:03)
[2021-07-23] MEDS: Amitriptyline HCl 25 MG TABLET 75 MG PO (20:04)
[2021-07-23] MEDS: lamoTRIgine 25 MG TABLET PO (20:04)
[2021-07-24 06:00] VITALS: BP 117/85; PULSE 106; RESP 16; TEMP 36.4; O2SAT 98
[2021-07-24] MEDS: Baclofen 10 MG TABLET PO ×3 (08:35→19:48)
[2021-07-24] MEDS: Buprenorphine/Naloxone 8/2 mg TAB.SUBL 1 TAB SUBLINGUAL ×3 (08:35→19:48)
[2021-07-24] MEDS: valACYclovir HCL 500 MG TABLET PO (08:35)
[2021-07-24] MEDS: buPROPion HCl XL 300 MG TAB.ER.24H PO (08:35)
[2021-07-24] MEDS: Gabapentin 400 MG CAPSULE 800 MG PO ×3 (08:36→19:49)
--- NOTE | 2021-07-24 12:02 | HO.ADDICTCON ---
History of Present Illness Date of Service: 07/24/2021 Chief Complaint: SI, depression Reason for Consult: OUD-recent suboxone start Requesting physician: Ivelisse Small [facility] Narrative: Patient is a 61-year-old male with history of opioid use disorder, chronic pain and depression. Patient is currently psychiatrically admitted following a suicide attempt via opioid overdose--patient expressing significant frustration that attempt was unsuccessful. Consult requested as patient was recently started on Suboxone. Currently prescribed 8 mg 3 times a day. Patient reports that Suboxone is ?working perfectly?. He states that he regrets not having trialed this more seriously earlier as he feels that this has also greatly helped with his pain management, reports that his pain is currently between a 5 to 6/10 where previously he was living at a 9 or 10/10. Patient reports that he has been struggling with heroin and fentanyl use on and off for many years. Denies any history of overdose. Reporting that he does not have any recovery supports in place at this time, however is open to establishing some. Past Psychiatric History: IP: Denies OP: [facility] MAT Program-new pt Trials: Cymbalta, Wellbutrin, Mirtazapine, Gabapentin, Trazodone Review of Systems Review of Systems Yes all other systems are reviewed and are negative (Chronic back pain) Diagnostics Vital Signs (24Hr): Vital Signs - 24 hr 07/23/21 16:08 07/24/21 06:00 Temperature 97.5 F Pulse Rate 82 106 H Respiratory Rate 16 Blood Pressure 124/78 117/85 Pulse Oximetry 98 BMI result Body Mass Index 20.5 Labs Results: 07/20/21 17:38 07/20/21 17:38 Imaging Radiology Impressions: ITS Impressions Thoracic Spine X-Ray 07/21/21 23:25 IMPRESSION: No acute fracture or traumatic malalignment. Thoracic spondylosis as described. Mental Status Exam Mental Status Exam Patient Appearance: Well Grooomed and Appropriate Patient Orientation: Person, Place, Time and Situation Level of Consciousness: Awake and Appropriate Patient Behavior: Appropriate and Talkative Mood Description: Calm Affect Description: Calm Thought Process: Rumination Judgement: Fair Medications Medications Current Medications Acetaminophen (Acetaminophen 325 Mg Tablet) 650 mg PO Q6H PRN PRN Reason: Headache/Pain Mild Scale (1-3) Last Admin: 07/21/21 21:32 Dose: 650 mg Documented by: Al Hydroxide/Mg Hydroxide (Magnesium Hydrox/Alum Hydrox 30 Ml Oral.Susp) 30 ml PO Q6H PRN PRN Reason: Heartburn/Nausea Amitriptyline HCl (Amitriptyline Hcl 25 Mg Tablet) 75 mg PO BEDTIME [facility] Last Admin: 07/23/21 20:04 Dose: 75 mg Documented by: Baclofen (Baclofen 10 Mg Tablet) 10 mg PO TID [facility] Last Admin: 07/24/21 08:35 Dose: 10 mg Documented by: Buprenorphine/Naloxone (Buprenorphine/Naloxone 8/2 Mg Tab.Subl) 1 tab SUBLINGUAL TID [facility] Last Admin: 07/24/21 08:35 Dose: 1 tab Documented by: Bupropion HCl (Bupropion Hcl Xl 300 Mg Tab.Er.24h) 300 mg PO DAILY [facility] Last Admin: 07/24/21 08:35 Dose: 300 mg Documented by: Gabapentin (Gabapentin 400 Mg Capsule) 800 mg PO TID [facility] Last Admin: 07/24/21 08:36 Dose: 800 mg Documented by: Hydroxyzine HCl (Hydroxyzine Hcl 25 Mg Tablet) 25 mg PO Q6H PRN PRN Reason: Anxiety Last Admin: 07/23/21 20:03 Dose: 25 mg Documented by: Ibuprofen (Ibuprofen 800 Mg Tablet) 800 mg PO Q8H PRN PRN Reason: mod-severe pain Last Admin: 07/21/21 23:58 Dose: 800 mg Documented by: Lamotrigine (Lamotrigine 25 Mg Tablet) 25 mg PO BEDTIME [facility] Last Admin: 07/23/21 20:04 Dose: 25 mg Documented by: Magnesium Hydroxide (Milk Of Magnesia 30 Ml Oral.Susp) 30 ml PO DAILY PRN PRN Reason: Constipation Last Admin: 07/23/21 11:54 Dose: 30 ml Documented by: Trazodone HCl (Trazodone Hcl 100 Mg Tablet) 200 mg PO BEDTIME [facility] Last Admin: 07/23/21 20:03 Dose: 200 mg Documented by: Valacyclovir HCl (Valacyclovir Hcl 500 Mg Tablet) 500 mg PO DAILY [facility] Last Admin: 07/24/21 08:35 Dose: 500 mg Documented by: Allergies Allergies Allergy/AdvReac Type Severity Reaction Status Date / Time No Known Allergies Allergy Verified 07/20/21 13:38 [No Known Allergies*] Assessment & Plan Assessment & Plan (1) Opioid use disorder, severe, dependence: Status: Acute Code(s): F11.20 - Opioid dependence, uncomplicated Assessment and Plan: Continue Suboxone as currently prescribed Patient already has outpatient provider in place, should make an appointment prior to discharge. college sports coach to meet with patient this evening I spent __35____ minutes with the patient and/or on the patient floor today, greater than?50% of which was spent counseling/coordinating care. PMF Past Medical History Medical History (Updated 07/21/21 @ 15:41 by Ivelisse Small APRN) Chronic constipation Chronic pain Depression Dyslipidemia Erectile dysfunction Failed back syndrome Genital herpes in men History of substance abuse Impaired fasting glucose Insomnia Opioid use disorder, severe, dependence Severe recurrent major depression Family History Family History Father No problems noted. Mother Diabetes Brother HIV (human immunodeficiency virus infection) Hospice care patient Daughter Lupus Other Substance abuse Surgical History Surgical History H/O colonoscopy History of lumbar spinal fusion Social History Social History Household Members: Spouse Household Members Other:: Lives alone Housing: House Do you presently have visiting nurse or other home services: No Alcohol intake: never Patient Tobacco Use Status: Former Tobacco user e-Cigarette/Vaping Use: Never Used Second Hand Smoke Exposure: No Use of substances other than those prescribed or required for medical reasons: Yes Substance Use Type: Heroin and Marijuana Substance Use Type Other:: fentanel Substance Use Frequency: Daily Last Used Substance: Days (ago) Currently Displaying Signs/Symptoms of Drug Intoxication Withdrawal: No Any prior treatment program specific to substance use: No Have you been hit, kicked, punched, or otherwise hurt by someone within the past year? If so, by whom?: No Do you feel safe in your current relationship?: No Current Relationship Is there a partner from a previous relationship who is making you feel unsafe now?: No Are you made to feel afraid or neglected: No Spiritual Healthcare Practices: Pt states I am God fearing . Christian Healthcare Practices: Pt states I am God fearing . Cultural Healthcare Practices: N/A Advance Directives: No Advance Directives Information Provided: No Advance Directives on File: No Do you have thoughts of harming others: None Do you have a plan to hurt others: No Plan Recently lost weight without trying: No How much weight loss: Unsure Eating poorly because of decreased appetite: No Nutrition screen score: 2 Nutrition Risks: No Nutritional Risk Poor oral hygiene: No service: No Current occupational status: disabled Sexual orientation: Straight/Heterosexual Cognitive needs: No Hearing needs: No Vision needs: No
[2021-07-24 18:00] VITALS: BP 125/76; PULSE 105; RESP 16; TEMP 36.4; O2SAT 98
--- NOTE | 2021-07-24 18:14 | MHC.RECOVSUP ---
? Reason for consult Recovery Support o Current location: [address] o Identified substance use concern: Heroin - Overdose - Seeking ATS (detox) - Support ? Intervention: <del>o</del> <del>ATS</del> <del>bed</del> <del>search</del> <del>started/completed/in</del> <del>process</del> <del>o</del> <del>MAT</del> <del>started</del> <del>or</del> <del>to</del> <del>be</del> <del>started</del> o Community resources provided o Harm reduction discussion ? Plan: <del>o</del> <del>Referral</del> <del>to</del> <del>[facility]</del> <del>o</del> <del>Bed</del> <del>search</del> <del>in</del> <del>progress</del> <del>to</del> <del>o</del> <del>Follow</del> <del>up</del> <del>tomorrow</del> <del>o</del> <del>Patient</del> <del>awaiting</del> <del>crisis</del> <del>evaluation</del> o Patient to follow up with [facility] after discharge ? Additional information: Met with Patient and we talked recovery and harm reduction.. We talk about [facility] [employer]... And i shared personal experience.. I left and patient has a new sense of Hope.
[2021-07-24] MEDS: lamoTRIgine 25 MG TABLET PO (19:48)
[2021-07-24] MEDS: Amitriptyline HCl 25 MG TABLET 75 MG PO (19:48)
[2021-07-24] MEDS: traZODone HCL 100 MG TABLET 200 MG PO (19:49)
[2021-07-25] MEDS: Ibuprofen 800 MG TABLET PO ×3 (01:50→21:12)
[2021-07-25] MEDS: hydrOXYzine HCL 25 MG TABLET PO (01:50)
--- NOTE | 2021-07-25 03:04 | HO.PSYCHPN ---
Subjective Subjective Date of Service: 07/24/21 Reason For Visit: SI, depression Subjective Notes: Conditional Voluntary Healthcare Proxy: No Guardianship: No Medical Problems Affecting Mental Status: Yes (Chronic Pain) Interim History: Pt requested and received a room change due to room-mate snoring. Met with addictions team. Consult appreciated. Continues with pain (improved with Suboxone), dysphoria, grief that his attempt did not succeed. Considering options for ongoing care. Medication Compliance: Yes Side effects from medications: No Attending Groups: Intermittent Review of Systems Acute medical concerns: No Medical Review of Systems: unchanged Mental Status Exam Mental Status Exam Patient Appearance: Fatigued Patient Orientation: Person, Place, Time and Situation Level of Consciousness: Alert Patient Behavior: Appropriate, Talkative, Cooperative, Anxious, Fatigued, Isolative and Good Eye Contact Mood Description: Depressed Affect Description: Flat Patient Cognition Impaired: No Ability to Follow Directions: Good Speech Pattern: Spontaneous Speech Memory Description: Intact Hallucinations: None Delusions: Not Present Perceptual Disturbances: Depersonalization and Derealization Thought Process: Distracted and Rumination Thought Content: positive for [place], positive for Circumstantial, positive for Perseveration and positive for Suicidal Ideation Depressive Symptoms: Increased Anxiety, Insomnia, Diff. Making Decisions, Muscle Tension, Increased Irritability, Difficulty Sleeping, Changes in Appetite, Muscle Pain, Crying Spells, Reduced Sex Drive, Loss of Int. in Activity, Feelings of Worthlessness, Hopelessness, Isolating-Friends/Family, Feelings of Guilt, Unexplained Headaches, Unhappiness, Increased Fatigue, Thoughts of /Suicide, Low Self Esteem, Loss of Energy, Difficulty Concentrating and Back Pain Judgement: Fair Diagnostics Vital Signs (24Hr): Vital Signs - 24 hr 07/24/21 06:00 07/24/21 18:00 Temperature 97.5 F 97.6 F Pulse Rate 106 H 105 H Respiratory Rate 16 16 Blood Pressure 117/85 125/76 Pulse Oximetry 98 98 BMI result Body Mass Index 20.5 Labs Results: 07/20/21 17:38 07/20/21 17:38 Imaging Radiology Impressions: ITS Impressions Thoracic Spine X-Ray 07/21/21 23:25 IMPRESSION: No acute fracture or traumatic malalignment. Thoracic spondylosis as described. Medications Medications Current Medications Acetaminophen (Acetaminophen 325 Mg Tablet) 650 mg PO Q6H PRN PRN Reason: Headache/Pain Mild Scale (1-3) Last Admin: 07/21/21 21:32 Dose: 650 mg Documented by: Al Hydroxide/Mg Hydroxide (Magnesium Hydrox/Alum Hydrox 30 Ml Oral.Susp) 30 ml PO Q6H PRN PRN Reason: Heartburn/Nausea Amitriptyline HCl (Amitriptyline Hcl 25 Mg Tablet) 75 mg PO BEDTIME [facility] Last Admin: 07/24/21 19:48 Dose: 75 mg Documented by: Baclofen (Baclofen 10 Mg Tablet) 10 mg PO TID [facility] Last Admin: 07/24/21 19:48 Dose: 10 mg Documented by: Buprenorphine/Naloxone (Buprenorphine/Naloxone 8/2 Mg Tab.Subl) 1 tab SUBLINGUAL TID [facility] Last Admin: 07/24/21 19:48 Dose: 1 tab Documented by: Bupropion HCl (Bupropion Hcl Xl 300 Mg Tab.Er.24h) 300 mg PO DAILY [facility] Last Admin: 07/24/21 08:35 Dose: 300 mg Documented by: Gabapentin (Gabapentin 400 Mg Capsule) 800 mg PO TID [facility] Last Admin: 07/24/21 19:49 Dose: 800 mg Documented by: Hydroxyzine HCl (Hydroxyzine Hcl 25 Mg Tablet) 25 mg PO Q6H PRN PRN Reason: Anxiety Last Admin: 07/25/21 01:50 Dose: 25 mg Documented by: Ibuprofen (Ibuprofen 800 Mg Tablet) 800 mg PO Q8H PRN PRN Reason: mod-severe pain Last Admin: 07/25/21 01:50 Dose: 800 mg Documented by: Lamotrigine (Lamotrigine 25 Mg Tablet) 25 mg PO BEDTIME [facility] Last Admin: 07/24/21 19:48 Dose: 25 mg Documented by: Magnesium Hydroxide (Milk Of Magnesia 30 Ml Oral.Susp) 30 ml PO DAILY PRN PRN Reason: Constipation Last Admin: 07/23/21 11:54 Dose: 30 ml Documented by: Trazodone HCl (Trazodone Hcl 100 Mg Tablet) 200 mg PO BEDTIME [facility] Last Admin: 07/24/21 19:49 Dose: 200 mg Documented by: Valacyclovir HCl (Valacyclovir Hcl 500 Mg Tablet) 500 mg PO DAILY [facility] Last Admin: 07/24/21 08:35 Dose: 500 mg Documented by: Allergies Allergies Allergy/AdvReac Type Severity Reaction Status Date / Time No Known Allergies Allergy Verified 07/20/21 13:38 [No Known Allergies*] Assessment & Plan Assessment & Plan (1) Opioid use disorder, severe, dependence: Status: Acute Code(s): F11.20 - Opioid dependence, uncomplicated Assessment and Plan: Continue Suboxone as currently prescribed Patient already has outpatient provider in place, should make an appointment prior to discharge. transition coach to meet with patient this evening (2) Chronic pain: Status: Acute Code(s): G89.29 - Other chronic pain (3) Severe recurrent major depression: Status: Acute Code(s): F33.2 - Major depressive disorder, recurrent severe without psychotic features Assessment and Plan: 07/24/21- Continue current regime. I spent minutes with the patient and/or on the patient floor today, greater than?50% of which was spent counseling/coordinating care. Patient educated on: therapeutic strategies Informed Consent: understands Reason for contiued inpatient stay Substantial Risk for: harm to self, inability to function and rapid decompensation
[2021-07-25 06:00] VITALS: BP 107/60; PULSE 80; RESP 16; TEMP 36.2; O2SAT 98
[2021-07-25] MEDS: Baclofen 10 MG TABLET PO ×3 (09:57→21:09)
[2021-07-25] MEDS: valACYclovir HCL 500 MG TABLET PO (09:57)
[2021-07-25] MEDS: Gabapentin 400 MG CAPSULE 800 MG PO ×3 (09:57→21:09)
[2021-07-25] MEDS: buPROPion HCl XL 300 MG TAB.ER.24H PO (09:57)
[2021-07-25] MEDS: Buprenorphine/Naloxone 8/2 mg TAB.SUBL 1 TAB SUBLINGUAL ×3 (09:58→21:09)
[2021-07-25] MEDS: Acetaminophen 325 MG TABLET 650 MG PO (10:02)
--- NOTE | 2021-07-25 17:25 | P.PNPSI_ITS ---
Subjective Subjective Date of Service: 07/25/21 Reason For Visit: SI, depression Subjective Notes: Conditional Voluntary Healthcare Proxy: No Guardianship: No Medical Problems Affecting Mental Status: No Interim History: Expressed anger, depressive sx, lability. Reports insomnia. Discussed medication change possibilities. Why bother, I am not worth this. Education provided Will trial Seroquel 100 mg hs and Depakote ER 500 mg HS Reports constipation. Magnesium Citrate ordered. Discussed discharge Medication Compliance: Yes Side effects from medications: No Attending Groups: Yes Review of Systems Acute medical concerns: No Medical Review of Systems: unchanged Review of Systems Gastrointestinal: Reports constipation Musculoskeletal: Reports back pain Reports behavioral changes Psychiatric: Reports abnormal sleep pattern, Reports anxiety, Reports behavioral changes, Reports depression, Reports difficulty concentrating, Reports hopelessness, Reports irritability, Reports anhedonia, Reports mood swings, Reports paranoia and Reports suicidal ideation (denies) Mental Status Exam Mental Status Exam Patient Appearance: Fatigued Patient Orientation: Person, Place, Time and Situation Level of Consciousness: Alert Patient Behavior: Appropriate, Talkative, Cooperative, Anxious, Fatigued, Isolative and Good Eye Contact Mood Description: Depressed and Labile Affect Description: Labile, Angry and Flat Patient Cognition Impaired: No Ability to Follow Directions: Good Speech Pattern: Spontaneous Speech Memory Description: Intact Hallucinations: None Delusions: Not Present Perceptual Disturbances: Depersonalization and Derealization Thought Process: Distracted and Rumination Thought Content: positive for [place], positive for Circumstantial and positive for [place] Depressive Symptoms: Increased Anxiety, Insomnia, Diff. Making Decisions, Muscle Tension, Increased Irritability, Difficulty Sleeping, Changes in Appetite, Muscle Pain, Crying Spells, Reduced Sex Drive, Loss of Int. in Activity, Feelings of Worthlessness, Hopelessness, Isolating-Friends/Family, Feelings of Guilt, Unexplained Headaches, Unhappiness, Increased Fatigue, Low Self Esteem, Loss of Energy, Difficulty Concentrating and Back Pain Judgement: Fair Diagnostics Vital Signs (24Hr): Vital Signs - 24 hr 07/24/21 18:00 07/25/21 06:00 Temperature 97.6 F 97.1 F Pulse Rate 105 H 80 Respiratory Rate 16 16 Blood Pressure 125/76 107/60 Pulse Oximetry 98 98 BMI result Body Mass Index 20.5 Labs Results: 07/20/21 17:38 07/20/21 17:38 Imaging Radiology Impressions: ITS Impressions Thoracic Spine X-Ray 07/21/21 23:25 IMPRESSION: No acute fracture or traumatic malalignment. Thoracic spondylosis as described. Medications Medications Current Medications Acetaminophen (Acetaminophen 325 Mg Tablet) 650 mg PO Q6H PRN PRN Reason: Headache/Pain Mild Scale (1-3) Last Admin: 07/25/21 10:02 Dose: 650 mg Documented by: Al Hydroxide/Mg Hydroxide (Magnesium Hydrox/Alum Hydrox 30 Ml Oral.Susp) 30 ml PO Q6H PRN PRN Reason: Heartburn/Nausea Amitriptyline HCl (Amitriptyline Hcl 25 Mg Tablet) 75 mg PO BEDTIME [facility] Last Admin: 07/24/21 19:48 Dose: 75 mg Documented by: Baclofen (Baclofen 10 Mg Tablet) 10 mg PO TID [facility] Last Admin: 07/25/21 14:52 Dose: 10 mg Documented by: Buprenorphine/Naloxone (Buprenorphine/Naloxone 8/2 Mg Tab.Subl) 1 tab SUBLINGUAL TID [facility] Last Admin: 07/25/21 14:52 Dose: 1 tab Documented by: Bupropion HCl (Bupropion Hcl Xl 300 Mg Tab.Er.24h) 300 mg PO DAILY [facility] Last Admin: 07/25/21 09:57 Dose: 300 mg Documented by: Gabapentin (Gabapentin 400 Mg Capsule) 800 mg PO TID [facility] Last Admin: 07/25/21 14:52 Dose: 800 mg Documented by: Hydroxyzine HCl (Hydroxyzine Hcl 25 Mg Tablet) 25 mg PO Q6H PRN PRN Reason: Anxiety Last Admin: 07/25/21 01:50 Dose: 25 mg Documented by: Ibuprofen (Ibuprofen 800 Mg Tablet) 800 mg PO Q8H PRN PRN Reason: mod-severe pain Last Admin: 07/25/21 10:02 Dose: 800 mg Documented by: Lamotrigine (Lamotrigine 25 Mg Tablet) 25 mg PO BEDTIME [facility] Last Admin: 07/24/21 19:48 Dose: 25 mg Documented by: Magnesium Hydroxide (Milk Of Magnesia 30 Ml Oral.Susp) 30 ml PO DAILY PRN PRN Reason: Constipation Last Admin: 07/23/21 11:54 Dose: 30 ml Documented by: Trazodone HCl (Trazodone Hcl 100 Mg Tablet) 200 mg PO BEDTIME [facility] Last Admin: 07/24/21 19:49 Dose: 200 mg Documented by: Valacyclovir HCl (Valacyclovir Hcl 500 Mg Tablet) 500 mg PO DAILY [facility] Last Admin: 07/25/21 09:57 Dose: 500 mg Documented by: Allergies Allergies Allergy/AdvReac Type Severity Reaction Status Date / Time No Known Allergies Allergy Verified 07/20/21 13:38 [No Known Allergies*] Assessment & Plan Assessment & Plan (1) Opioid use disorder, severe, dependence: Status: Acute Code(s): F11.20 - Opioid dependence, uncomplicated Assessment and Plan: * Continue Suboxone as currently prescribed * Patient already has outpatient provider in place, should make an appointment prior to discharge. * cricket coach to meet with patient this evening (2) Chronic pain: Status: Acute Code(s): G89.29 - Other chronic pain (3) Severe recurrent major depression: Status: Acute Code(s): F33.2 - Major depressive disorder, recurrent severe without psychotic features Assessment and Plan: 07/24/21- Continue current regime. 07/25/21- Magnesium Citrate for constipation. Depakote ER 500 mg hs Seroquel 100 mg hs. I spent minutes with the patient and/or on the patient floor today, greater than?50% of which was spent counseling/coordinating care. Patient educated on: diagnosis, medication risk/benefits and therapeutic strategies Informed Consent: understands and further education needed Reason for contiued inpatient stay Substantial Risk for: harm to self, inability to function and rapid decompensation
[2021-07-25] MEDS: Amitriptyline HCl 25 MG TABLET 75 MG PO (21:08)
[2021-07-25] MEDS: Divalproex Sodium ER 500 MG TAB.ER.24H PO (21:09)
[2021-07-25] MEDS: QUEtiapine Fumarate 100 MG TABLET PO (21:11)
[2021-07-25] MEDS: lamoTRIgine 25 MG TABLET PO (21:11)
[2021-07-25] MEDS: traZODone HCL 100 MG TABLET 200 MG PO (21:12)
[2021-07-26 06:39] VITALS: BP 90/51; PULSE 68; RESP 16; TEMP 36.1; O2SAT 99
[2021-07-26] MEDS: Gabapentin 400 MG CAPSULE 800 MG PO ×3 (08:26→20:37)
[2021-07-26] MEDS: buPROPion HCl XL 300 MG TAB.ER.24H PO (08:26)
[2021-07-26] MEDS: Buprenorphine/Naloxone 8/2 mg TAB.SUBL 1 TAB SUBLINGUAL ×3 (08:27→20:38)
[2021-07-26] MEDS: valACYclovir HCL 500 MG TABLET PO (08:27)
[2021-07-26] MEDS: Baclofen 10 MG TABLET PO ×3 (08:27→20:37)
[2021-07-26] MEDS: Magnesium Citrate 300 ML SOLUTION PO (10:12)
--- NOTE | 2021-07-26 16:15 | P.PNPSI_ITS ---
Subjective Subjective Date of Service: 07/26/21 Reason For Visit: SI, depression Subjective Notes: Conditional Voluntary Healthcare Proxy: No Guardianship: No Medical Problems Affecting Mental Status: No Interim History: Feeling significant improvement with Depakote/Seroquel. Interested in attending [facility] Planning discharge for 07/27/21. Medication Compliance: Yes Side effects from medications: No Attending Groups: Yes Review of Systems Acute medical concerns: No Medical Review of Systems: unchanged Review of Systems Psychiatric: Reports anxiety, Reports irritability and Reports suicidal ideation (denies) Mental Status Exam Mental Status Exam Patient Appearance: Appropriate Patient Orientation: Person, Place, Time and Situation Level of Consciousness: Alert Patient Behavior: Appropriate, Talkative, Cooperative and Good Eye Contact Mood Description: Calm Affect Description: Calm Patient Cognition Impaired: No Ability to Follow Directions: Good Speech Pattern: Spontaneous Speech Memory Description: Intact Hallucinations: None Delusions: Not Present Thought Process: Intact and Goal Oriented Thought Content: positive for Intact and positive for Suicidal Ideation (denies) Depressive Symptoms: Thoughts of /Suicide (denies) Judgement: Good Diagnostics Vital Signs (24Hr): Vital Signs - 24 hr 07/26/21 06:39 Temperature 97 F Pulse Rate 68 Respiratory Rate 16 Blood Pressure 90/51 L Pulse Oximetry 99 BMI result Body Mass Index 20.5 Labs Results: 07/20/21 17:38 07/20/21 17:38 Imaging Radiology Impressions: ITS Impressions Thoracic Spine X-Ray 07/21/21 23:25 IMPRESSION: No acute fracture or traumatic malalignment. Thoracic spondylosis as described. Medications Medications Current Medications Acetaminophen (Acetaminophen 325 Mg Tablet) 650 mg PO Q6H PRN PRN Reason: Headache/Pain Mild Scale (1-3) Last Admin: 07/25/21 10:02 Dose: 650 mg Documented by: Al Hydroxide/Mg Hydroxide (Magnesium Hydrox/Alum Hydrox 30 Ml Oral.Susp) 30 ml PO Q6H PRN PRN Reason: Heartburn/Nausea Amitriptyline HCl (Amitriptyline Hcl 25 Mg Tablet) 75 mg PO BEDTIME [facility] Last Admin: 07/25/21 21:08 Dose: 75 mg Documented by: Baclofen (Baclofen 10 Mg Tablet) 10 mg PO TID [facility] Last Admin: 07/26/21 14:23 Dose: 10 mg Documented by: Buprenorphine/Naloxone (Buprenorphine/Naloxone 8/2 Mg Tab.Subl) 1 tab SUBLINGUAL TID [facility] Last Admin: 07/26/21 14:23 Dose: 1 tab Documented by: Bupropion HCl (Bupropion Hcl Xl 300 Mg Tab.Er.24h) 300 mg PO DAILY [facility] Last Admin: 07/26/21 08:26 Dose: 300 mg Documented by: Divalproex Sodium (Divalproex Sodium Er 500 Mg Tab.Er.24h) 500 mg PO BEDTIME [facility] Last Admin: 07/25/21 21:09 Dose: 500 mg Documented by: Gabapentin (Gabapentin 400 Mg Capsule) 800 mg PO TID [facility] Last Admin: 07/26/21 14:23 Dose: 800 mg Documented by: Hydroxyzine HCl (Hydroxyzine Hcl 25 Mg Tablet) 25 mg PO Q6H PRN PRN Reason: Anxiety Last Admin: 07/25/21 01:50 Dose: 25 mg Documented by: Ibuprofen (Ibuprofen 800 Mg Tablet) 800 mg PO Q8H PRN PRN Reason: mod-severe pain Last Admin: 07/25/21 21:12 Dose: 800 mg Documented by: Lamotrigine (Lamotrigine 25 Mg Tablet) 25 mg PO BEDTIME [facility] Last Admin: 07/25/21 21:11 Dose: 25 mg Documented by: Magnesium Hydroxide (Milk Of Magnesia 30 Ml Oral.Susp) 30 ml PO DAILY PRN PRN Reason: Constipation Last Admin: 07/23/21 11:54 Dose: 30 ml Documented by: Quetiapine Fumarate (Quetiapine Fumarate 100 Mg Tablet) 100 mg PO BEDTIME [facility] Last Admin: 07/25/21 21:11 Dose: 100 mg Documented by: Trazodone HCl (Trazodone Hcl 100 Mg Tablet) 200 mg PO BEDTIME [facility] Last Admin: 07/25/21 21:12 Dose: 200 mg Documented by: Valacyclovir HCl (Valacyclovir Hcl 500 Mg Tablet) 500 mg PO DAILY [facility] Last Admin: 07/26/21 08:27 Dose: 500 mg Documented by: Allergies Allergies Allergy/AdvReac Type Severity Reaction Status Date / Time No Known Allergies Allergy Verified 07/20/21 13:38 [No Known Allergies*] Assessment & Plan Assessment & Plan (1) Opioid use disorder, severe, dependence: Status: Acute Code(s): F11.20 - Opioid dependence, uncomplicated Assessment and Plan: * Continue Suboxone as currently prescribed * Patient already has outpatient provider in place, should make an appointment prior to discharge. * public speaking coach to meet with patient this evening (2) Chronic pain: Status: Acute Code(s): G89.29 - Other chronic pain (3) Severe recurrent major depression: Status: Acute Code(s): F33.2 - Major depressive disorder, recurrent severe without psychotic features Assessment and Plan: 07/24/21- Continue current regime. Plan 07/26/21- Discharge 07/27. I spent minutes with the patient and/or on the patient floor today, greater than?50% of which was spent counseling/coordinating care. Patient educated on: diagnosis, medication risk/benefits and therapeutic strategies Informed Consent: understands and further education needed Reason for contiued inpatient stay Substantial Risk for: stable for discharge
[2021-07-26 19:30] VITALS: BP 108/65; PULSE 92; RESP 18; TEMP 36.5; O2SAT 99
[2021-07-26] MEDS: QUEtiapine Fumarate 100 MG TABLET PO (20:38)
[2021-07-26] MEDS: Divalproex Sodium ER 500 MG TAB.ER.24H PO (20:38)
[2021-07-26] MEDS: Amitriptyline HCl 25 MG TABLET 75 MG PO (20:38)
[2021-07-26] MEDS: traZODone HCL 100 MG TABLET 200 MG PO (20:38)
[2021-07-26] MEDS: lamoTRIgine 25 MG TABLET PO (20:38)
[2021-07-27] MEDS: hydrOXYzine HCL 25 MG TABLET PO (00:25)
[2021-07-27 06:00] VITALS: BP 111/64; PULSE 98; RESP 16; TEMP 36.5; O2SAT 99
[2021-07-27] MEDS: Baclofen 10 MG TABLET PO ×2 (08:24→14:19)
[2021-07-27] MEDS: Gabapentin 400 MG CAPSULE 800 MG PO ×2 (08:25→14:19)
[2021-07-27] MEDS: buPROPion HCl XL 300 MG TAB.ER.24H PO (08:25)
[2021-07-27] MEDS: valACYclovir HCL 500 MG TABLET PO (08:25)
[2021-07-27] MEDS: Buprenorphine/Naloxone 8/2 mg TAB.SUBL 1 TAB SUBLINGUAL ×2 (08:25→14:19)
[2021-07-27 08:51] VITALS: BMI 21.2
--- NOTE | 2021-07-27 15:56 | P.DS_ITS ---
DS: Providers Provider Date of Service: 07/27/21 Date of admission: 07/20/21 21:01 Date of discharge: 07/27/21 Primary care physician: Fco Jaquez MD Admitting clinician: Ivelisse Small Attending physician on admission: Ivelisse Small Consults: 07/21/21 15:55 Addiction Medicine Routine Consulting Provider: Yareli Loving Reason for consultation: New to Suboxone, chronic back pain, s/p OD Fentanyl Has provider been notified: No Attending physician on discharge: Ivelisse Small Discharging clinician: Ivelisse Small DS: Diagnosis Discharge Diagnosis (1) Opioid use disorder, severe, dependence: Status: Acute (2) Chronic pain: Status: Acute (3) Severe recurrent major depression: Status: Acute DS: Medications Discharge Medications Home Medications: Home Medications Medication Instructions Recorded Confirmed baclofen 10 mg tablet 10 mg PO TID 10/18/20 07/20/21 Previous Rx's Medication Instructions Recorded gabapentin 800 mg tablet 800 mg PO TID 30 Days #90 tab 02/20/21 bupropion HCl 300 mg 24 hr tablet, 300 mg PO QAM #90 tab 06/26/21 extended release amitriptyline 75 mg tablet 75 mg PO BEDTIME #30 tab 07/27/21 buprenorphine 8 mg-naloxone 2 mg 1 tab SUBLINGUAL TID #0 tab 07/27/21 sublingual tablet divalproex 500 mg tablet,extended 500 mg PO BEDTIME #15 tab 07/27/21 release 24 hr lamotrigine 25 mg tablet 25 mg PO BEDTIME #15 tab 07/27/21 quetiapine 100 mg tablet 100 mg PO BEDTIME #15 tab 07/27/21 trazodone 100 mg tablet 200 mg PO BEDTIME #60 tab 07/27/21 valacyclovir 500 mg tablet 500 mg PO DAILY #90 tab 07/27/21 Mental Status Exam Mental Status Exam Patient Appearance: Appropriate Patient Orientation: Person, Place, Time and Situation Level of Consciousness: Alert Patient Behavior: Appropriate, Talkative, Cooperative and Good Eye Contact Mood Description: Calm Affect Description: Calm Patient Cognition Impaired: No Ability to Follow Directions: Good Speech Pattern: Spontaneous Speech Memory Description: Intact Hallucinations: None Delusions: Not Present Thought Process: Intact and Goal Oriented Thought Content: positive for Intact and positive for Suicidal Ideation (denies) Depressive Symptoms: Thoughts of /Suicide (denies) Judgement: Good Data Data Completed and Pending Completed studies during hospitalization [Text1]: 07/20/21 07/20/21 07/20/21 17:38 17:38 17:38 WBC 5.4 RBC 4.51 L Hgb 13.5 L Hct 39.6 L MCV 87.8 MCH 29.9 MCHC 34.1 RDW 12.6 Plt Count 261 D MPV 9.2 L Immature Gran % (Auto) 0.2 Neut % (Auto) 65.0 Lymph % (Auto) 26.5 [place] % (Auto) 6.8 Eos % (Auto) 0.9 Baso % (Auto) 0.6 Lymph # (Auto) 1.4 [place] # (Auto) 0.4 Eos # (Auto) 0.1 Baso # (Auto) 0.0 Abs Immat Gran (auto) 0.01 Absolute Neuts (auto) 3.5 Absolute Nucleated RBC 0.000 Nucleated RBC % (auto) 0.0 Sodium 141 Potassium 4.7 Chloride 105 Carbon Dioxide 28 Anion Gap 13 BUN 27 H Creatinine 0.94 Estim Creat Clear Calc 73.1 Estimated GFR > 60 Random Glucose 146 H Calcium 10.1 Total Bilirubin 0.6 Direct Bilirubin 0.2 AST 14 ALT 17 Alkaline Phosphatase 63 Total Protein 7.2 Albumin 4.2 Salicylates < 5.0 L Acetaminophen < 1 Ethyl Alcohol < 10 Imaging Diagnostic Imaging Impressions Thoracic Spine X-Ray 07/21/21 23:25 IMPRESSION: No acute fracture or traumatic malalignment. Thoracic spondylosis as described. DS: Summary Hospital Course Hospital Course: Admission to adult psychiatry to address symptoms of depression/mood disorder, opiate use disorder and chronic pain. Prior to admission, Suboxone was initiated. This was continued and titrated. Pt was managed by addictions team and will attend the [facility]. Depakote, Seroquel, Lamictal were initiated and pt reported a positive response on mood, anger and depression. Wellbutrin, Gabapentin, Amitriptyline and Trazodone were maintained. Pt found some significant pain relief in Suboxone as well. Pt expressed interest in continuing his treatment in psychotherapy. He accepted referrals for out patient care and will complete an intake for [facility] upon discharge. Time spent discussing smoking cessation with patient: 3 to 10 minutes Status at Discharge Functional status at discharge: independent ambulation Overall status at discharge: patient is progressing back to baseline Time Spent with Patient Time attestation: Total time spent providing and/or coordinating discharge services: 35 Time spent: Greater than 30 minutes Discharge Plan Discharge Patient Disposition: Home, Self-Care Discharge Diagnosis: Mood Disorder Chronic Pain Opiate Use Disorder-Currently on Suboxone Referrals: Suboxone: Yareli Loving [Other] - 07/27/21 2:45 pm (This is an in-person appointment) Partial Hospitalization Program (PHP): Mary Nelson [Other] - 07/31/21 8:00 am (This is a virtual intake appointment that will last about 1 hour. You will be sent a link to your email prior to the appointment start time. You will begin PHP on Saturday from 9-2PM.) Therapy Intake: Sidney Sheets [Other] - 08/01/21 11:00 am (This is an in-office appointment) Psychiatry: Shelby Garcia [Other] - 08/21/21 11:00 am (This is a virtual Telehealth appointment. You will be sent a link to your email to connect to the appointment) Psychiatry: Shelby Garcia [Other] - 09/18/21 10:20 am (This is a virtual Telehealth appointment) Fco Jaquez MD [Primary Care Provider] - 08/02/21 3:00 pm (IN OFFICE. [facility]) Discharge Medications: New quetiapine 100 mg Tablet 100 mg PO BEDTIME Qty: 15 1RF lamotrigine 25 mg Tablet 25 mg PO BEDTIME Qty: 15 1RF divalproex 500 mg Tablet Extended Release 24 Hr 500 mg PO BEDTIME Qty: 15 1RF buprenorphine-naloxone 8-2 mg Tablet, Sublingual 1 tab sublingual TID Qty: 0 0RF Continued bupropion HCl 300 mg tablet extended release 24 hr 300 mg PO QAM Qty: 90 0RF baclofen 10 mg tablet 10 mg PO TID 0RF gabapentin 800 mg tablet 800 mg PO TID 30 Days Qty: 90 2RF No Action valacyclovir 500 mg tablet 500 mg PO DAILY Qty: 90 0RF trazodone 100 mg tablet 200 mg PO BEDTIME Qty: 60 0RF amitriptyline 75 mg tablet 75 mg PO BEDTIME Qty: 30 0RF Discharge Orders: Discharge Order (Routine); Ordered 07/27/21 Ordered By: Ivelisse Small Diet: advance to usual diet Activity on Discharge: As tolerated Stand Alone Forms: Patient Portal Discharge page, Community Support Care Plan Goals: Mood Stabilization Sobriety Health Concerns: Mood Disorder Chronic Pain Opiate Dependence-currently on Suboxone Plan of Treatment: Attend scheduled appointments Suboxone will be prescribed from the [facility] Take medications as directed You expressed interest in the [facility]. They may be reached at [phone] to schedule an intake appointment. Currently the program is via Telehealth. You have completed a significant piece of work during your brief hospitalization. Continue to practice coping skills to manage your emotions and reach out to providers when you are feeling overwhelmed. Crisis Team [phone]. Call as needed Call or return as needed Assessment: non psychotic non suicidal Discharge Date/Time: 07/27/21 14:31
== END 2021-07-27 14:31 | disposition home or self-care (01) | DRG 885 ==
LOC: HO.ED 17:15 → HO.PM5 21:16
PROVIDERS: Nurse Practitioner Family; Admitting Provider Psychiatry & Neurology Psychiatry; Emergency Provider Emergency Medicine; PCP Internal Medicine; Visit Provider Clinical Nurse Specialist Psychiatric/Mental Health, Adult
DX: F33.2 Major depressive disorder, recurrent severe without psychotic features (principal); R45.851 Suicidal ideations; F11.20 Opioid dependence, uncomplicated; G89.29 Other chronic pain; K59.03 Drug induced constipation; T40.3X5A Adverse effect of methadone, initial encounter; Z98.1 Arthrodesis status; Z20.822 Contact with and (suspected) exposure to COVID-19; Z91.51 Personal history of suicidal behavior; Z87.891 Personal history of nicotine dependence; Z79.899 Other long term (current) drug therapy
CPT/HCPCS: 36415; 72072; 80048; 80076; 80143; 80179; 80307; 82077; 85025; 87635; 93005; 99285

== ENCOUNTER → 2021-07-27 14:29 | Outpatient (BNVA) | payer OTHER, SELFPAY | PROVIDERS: Visit Provider Nurse Practitioner Psychiatric/Mental Health | DX: F11.20 Opioid dependence, uncomplicated (principal) | CPT/HCPCS: 80305; 99212 ==

== ENCOUNTER 2021-08-02 11:03 | Emergency (ER) | payer OTHER, SELFPAY ==
[2021-08-02 11:16] VITALS: BP 129/81; BP 160/90; PULSE 110; PULSE 94; RESP 17; TEMP 36.7; O2SAT 96; O2SAT 98; BMI 22.0
--- NOTE | 2021-08-02 11:29 | ED.GENADULT ---
HPI - General Adult General Chief complaint: General Medical Stated complaint: CONFUSION/ALTERED,? REACTION TO MEDICATION Time Seen by Provider: 08/02/21 11:10 Source: patient and old records reviewed History of Present Illness HPI narrative: Patient was brought in today as he appeared confused in the parking lot while trying to find his car after a therapy appointment. Patient states he feels like it is due to new recent medications. He was recently hospitalized for depression with suicidal ideation after for an opioid overdose with suicidal intentions. He states he is feeling much better from the standpoint of depression and feels like his chronic pain is better managed on Suboxone. He states he feels like he is on a number of brain new nighttime medications and feels that is making him confused and groggy and slightly off balance. He states when he was looking for his car, he felt worse but now feels better. His nighttime medications which were started 6 days ago are divalproex 500 mg, lamotrigine 25 mg, quetiapine 100 mg. He has been on trazodone at bedtime as well for a long period of time and states that has never caused the symptoms. The only other night daytime medication he is on is buprenorphine. He recently started this during his last hospitalization for his opioid use disorder and chronic pain management. Otherwise he denies any new physical complaints. No recent illnesses. No headache. No cough fevers or chills. No focal weakness or numbness. No change in symptoms when he turns his head. No lightheaded symptoms. Related Data Home Medications Medication Instructions Recorded Confirmed baclofen 10 mg tablet 10 mg PO TID 10/18/20 07/20/21 Previous Rx's Medication Instructions Recorded gabapentin 800 mg tablet 800 mg PO TID 30 Days #90 tab 02/20/21 bupropion HCl 300 mg 24 hr tablet, 300 mg PO QAM #90 tab 06/26/21 extended release amitriptyline 75 mg tablet 75 mg PO BEDTIME #30 tab 07/27/21 buprenorphine 8 mg-naloxone 2 mg 1 tab SUBLINGUAL TID #0 tab 07/27/21 sublingual tablet divalproex 500 mg tablet,extended 500 mg PO BEDTIME #15 tab 07/27/21 release 24 hr lamotrigine 25 mg tablet 25 mg PO BEDTIME #15 tab 07/27/21 quetiapine 100 mg tablet 100 mg PO BEDTIME #15 tab 07/27/21 trazodone 100 mg tablet 200 mg PO BEDTIME #60 tab 07/27/21 valacyclovir 500 mg tablet 500 mg PO DAILY #90 tab 07/27/21 Allergies Allergy/AdvReac Type Severity Reaction Status Date / Time No Known Allergies Allergy Verified 07/20/21 13:38 [No Known Allergies*] Review of Systems Constitutional: Comments: No fevers or chills Eyes: Comments: No vision changes Cardiovascular: Comments: No chest pain Respiratory: Comments: No cough or shortness of breath Gastrointestinal: Comments: No abdominal pain Musculoskeletal: Comments: Chronic back pain but no new pain or change in symptoms. He states symptoms are better now that he is on Suboxone Integumentary/Breasts: Comments: No rash Neurologic: Comments: Feeling off balance and mildly confused, but symptoms are improving Psychiatric: Comments: No suicidal or homicidal ideations [facility] Past Medical History Medical History (Updated 08/02/21 @ 11:38 by Girish Murillo MD) Chronic constipation Chronic pain Depression Dyslipidemia Erectile dysfunction Failed back syndrome Genital herpes in men History of substance abuse Impaired fasting glucose Insomnia Opioid use disorder, severe, dependence Severe recurrent major depression Surgical History H/O colonoscopy History of lumbar spinal fusion Family History Family History Father No problems noted. Mother Diabetes Brother HIV (human immunodeficiency virus infection) Hospice care patient Daughter Lupus Other Substance abuse Social History Social History Household Members: Spouse Household Members Other:: Lives alone Housing: House Do you presently have visiting nurse or other home services: No Alcohol intake: never Patient Tobacco Use Status: Former Tobacco user e-Cigarette/Vaping Use: Never Used Second Hand Smoke Exposure: No Use of substances other than those prescribed or required for medical reasons: No Substance Use Type: Heroin and Marijuana service: No Current occupational status: disabled Sexual orientation: Straight/Heterosexual Cognitive needs: No Hearing needs: No Vision needs: No Physical Exam ED Vital Signs: Vital Signs - 24 hr 08/02/21 11:16 Temperature 98.1 F Pulse Rate 94 Respiratory Rate 17 Blood Pressure 129/81 Pulse Oximetry 96 BMI result Body Mass Index 22.0 Const Other: Awake alert no acute distress. HENMT Other: Normocephalic atraumatic Eyes Other: Pupils equal round reactive to light. Extraocular muscles intact without nystagmus Resp Other: Clear and equal bilaterally Cardio Other: Regular rate and rhythm without murmurs rubs or gallops GI Other: Soft nontender nondistended Skin Other: Warm and dry without rash Neuro Other: Strength equal bilaterally. Patient is ambulatory. Cerebellar testing shows normal [id number] bilaterally Course Course Course Narrative: Patient with mild confusion and ataxia which appears to be improving. Vital signs are completely stable and patient has no clinical evidence of stroke or other organic etiology. Given recent medication changes, I believe the patient is correct in the is not tolerating all of the medications at this point. He states he would rather not have testing such as blood work. I believe this is acceptable as he is improving. Stable for discharge home. Will have him discontinue Lamotrigine and divalproex at bedtime for now. In the meantime will contact his psychiatrist and follow up if symptoms do not completely resolve. No driving the meantime Discharge Plan Discharge Clinical Impression: Medication adverse effect Patient Disposition: Home, Self-Care Instructions: Altered Mental Status (ED) Additional Instructions: For now, at nighttime, discontinue divalproex and Lamotrigine. No driving until symptoms have completely resolved. Be sure to call your psychiatrist for further recommendations. Return if symptoms do not fully resolve by tomorrow Prescriptions: No Action bupropion HCl 300 mg tablet extended release 24 hr 300 mg PO QAM Qty: 90 0RF valacyclovir 500 mg tablet 500 mg PO DAILY Qty: 90 0RF trazodone 100 mg tablet 200 mg PO BEDTIME Qty: 60 0RF amitriptyline 75 mg tablet 75 mg PO BEDTIME Qty: 30 0RF quetiapine 100 mg Tablet 100 mg PO BEDTIME Qty: 15 1RF lamotrigine 25 mg Tablet 25 mg PO BEDTIME Qty: 15 1RF divalproex 500 mg Tablet Extended Release 24 Hr 500 mg PO BEDTIME Qty: 15 1RF buprenorphine-naloxone 8-2 mg Tablet, Sublingual 1 tab sublingual TID Qty: 0 0RF baclofen 10 mg tablet 10 mg PO TID 0RF gabapentin 800 mg tablet 800 mg PO TID 30 Days Qty: 90 2RF
[2021-08-02 11:43] VITALS: BP 121/80; PULSE 97; RESP 16; TEMP 36.7; O2SAT 97
== END 2021-08-02 12:58 | disposition home or self-care (01) ==
LOC: HO.ED 11:40
PROVIDERS: Emergency Provider Emergency Medicine; PCP Internal Medicine
DX: R41.0 Disorientation, unspecified (principal); T50.905A Adverse effect of unspecified drugs, medicaments and biological substances, initial encounter; Y92.481 Parking lot as the place of occurrence of the external cause; F32.A Depression, unspecified; F11.20 Opioid dependence, uncomplicated; Z79.899 Other long term (current) drug therapy; Z98.1 Arthrodesis status
CPT/HCPCS: 99282; 99284

== ENCOUNTER 2021-08-02 15:04 | Emergency (ER) | payer OTHER, SELFPAY ==
--- NOTE | ~2021-08-02 | CT_ITS ---
EXAMINATION: CT HEAD WITHOUT CONTRAST CLINICAL INFORMATION: Confusion COMPARISON: None TECHNIQUE: Contiguous axial imaging was performed from the skull base to vertex without intravenous administration of contrast. This CT examination was performed using dose optimization techniques as appropriate, variously including the following: *Automated exposure control *Adjustment of mA and/or kV according to patient size (this includes techniques or standardized protocols for targeted exams where dose is matched to indication/reason for exam; i.e. extremities or head) *Use of iterative reconstruction technique DLP: 657 mGy-cm FINDINGS: There is no evidence of acute intracranial hemorrhage or edematous territorial infarction. No abnormal mass effect or midline shift is seen. Mendez to white matter differentiation is well preserved. No extra-axial fluid collections are identified. The ventricles are normal in size. There is no abnormal attenuation within the brain parenchyma. No acute osseous abnormality. The mastoid air cells and visualized portions of the paranasal sinuses are well aerated. CT/CT head/brain wo con IMPRESSION: No CT evidence of acute intracranial pathology.
[2021-08-02 15:10] VITALS: BP 115/70; BP 130/90; PULSE 117; PULSE 96; RESP 16; TEMP 37.3; O2SAT 95; O2SAT 98; BMI 22.0
--- NOTE | 2021-08-02 15:14 | ED_ITS ---
HPI - General Adult General Chief complaint: Altered Mental Status <Girish Murillo MD - Last Filed: 08/02/21 21:18> Stated complaint: AMS PER EMS <Girish Murillo MD - Last Filed: 08/02/21 21:18> Time Seen by Provider: 08/02/21 15:12 <Girish Murillo MD - Last Filed: 08/02/21 21:18> Source: patient and old records reviewed <Girish Murillo MD - Last Filed: 08/02/21 21:18> History of Present Illness HPI narrative: Patient seen here earlier in the day with complaints of confusion which were attributed to recent additional medications for depression. He was discharged home stating he had a ride from a friend. He apparently did not have a ride and was wondering trying to find his car when someone noticed he looked confused and called EMS again. He states he feels the same as he did before. No pain or other recent illnesses. He denies falling or trauma <Girish Murillo MD - Last Filed: 08/02/21 21:18> Related Data Home medications: Home Medications Medication Instructions Recorded Confirmed baclofen 10 mg tablet 10 mg PO TID 10/18/20 07/20/21 Previous Rx's Medication Instructions Recorded gabapentin 800 mg tablet 800 mg PO TID 30 Days #90 tab 02/20/21 bupropion HCl 300 mg 24 hr tablet, 300 mg PO QAM #90 tab 06/26/21 extended release amitriptyline 75 mg tablet 75 mg PO BEDTIME #30 tab 07/27/21 buprenorphine 8 mg-naloxone 2 mg 1 tab SUBLINGUAL TID #0 tab 07/27/21 sublingual tablet divalproex 500 mg tablet,extended 500 mg PO BEDTIME #15 tab 07/27/21 release 24 hr lamotrigine 25 mg tablet 25 mg PO BEDTIME #15 tab 07/27/21 quetiapine 100 mg tablet 100 mg PO BEDTIME #15 tab 07/27/21 trazodone 100 mg tablet 200 mg PO BEDTIME #60 tab 07/27/21 valacyclovir 500 mg tablet 500 mg PO DAILY #90 tab 07/27/21 <Girish Murillo MD - Last Filed: 08/02/21 21:18> Allergies/adverse reactions: Allergies Allergy/AdvReac Type Severity Reaction Status Date / Time No Known Allergies Allergy Verified 07/20/21 13:38 [No Known Allergies*] <Girish Murillo MD - Last Filed: 08/02/21 21:18> Review of Systems Constitutional: Comments: No fevers chills <Girish Murillo MD - Last Filed: 08/02/21 21:18> Cardiovascular: Comments: No chest pain <Girish Murillo MD - Last Filed: 08/02/21 21:18> Respiratory: Comments: No shortness of breath <Girish Murillo MD - Last Filed: 08/02/21 21:18> Gastrointestinal: Comments: No abdominal pain or nausea or vomiting or diarrhea <Girish Murillo MD - Last Filed: 08/02/21 21:18> Musculoskeletal: Comments: No new pain <Girish Murillo MD - Last Filed: 08/02/21 21:18> Neurologic: Comments: Patient describes feeling off balance after walking multiple blocks. Otherwise no focal neuro deficits. <Girish Murillo MD - Last Filed: 08/02/21 21:18> Psychiatric: Comments: Patient states he does feel slightly confused still although much better than he was earlier <Girish Murillo MD - Last Filed: 08/02/21 21:18> PMFSH Past Medical History Medical History: Medical History (Updated 08/03/21 @ 05:05 by Neo Grimm MD) Chronic constipation Chronic pain Depression Dyslipidemia Erectile dysfunction Failed back syndrome Genital herpes in men History of substance abuse Impaired fasting glucose Insomnia Opioid use disorder, severe, dependence Severe recurrent major depression <Girish Murillo MD - Last Filed: 08/02/21 21:18> Surgical History: Surgical History H/O colonoscopy History of lumbar spinal fusion <Girish Murillo MD - Last Filed: 08/02/21 21:18> Family History Family History: Family History Father No problems noted. Mother Diabetes Brother HIV (human immunodeficiency virus infection) Hospice care patient Daughter Lupus Other Substance abuse <Girish Murillo MD - Last Filed: 08/02/21 21:18> Social History Social History: Social History Household Members: Spouse Household Members Other:: Lives alone Housing: House Do you presently have visiting nurse or other home services: No Alcohol intake: never Patient Tobacco Use Status: Former Tobacco user e-Cigarette/Vaping Use: Never Used Second Hand Smoke Exposure: No Substance Use Type: Heroin and Marijuana Advance Directives: No Advance Directives Information Provided: No service: No Current occupational status: disabled Sexual orientation: Straight/Heterosexual Cognitive needs: No Hearing needs: No Vision needs: No <Girish Murillo MD - Last Filed: 08/02/21 21:18> Physical Exam ED Vital Signs: Vital Signs - 24 hr 08/02/21 15:10 08/02/21 17:59 08/03/21 02:00 Temperature 99.1 F 97.6 F Pulse Rate 96 80 69 Respiratory Rate 16 18 7 L Blood Pressure 115/70 94/61 109/70 Pulse Oximetry 95 96 98 08/03/21 04:00 Temperature 97.7 F Pulse Rate 77 Respiratory Rate 13 Blood Pressure 121/81 Pulse Oximetry 99 BMI result Body Mass Index 22.0 <Girish Murillo MD - Last Filed: 08/02/21 21:18> Vital Signs - 24 hr 08/02/21 15:10 08/02/21 17:59 08/03/21 02:00 Temperature 99.1 F 97.6 F Pulse Rate 96 80 69 Respiratory Rate 16 18 7 L Blood Pressure 115/70 94/61 109/70 Pulse Oximetry 95 96 98 08/03/21 04:00 Temperature 97.7 F Pulse Rate 77 Respiratory Rate 13 Blood Pressure 121/81 Pulse Oximetry 99 BMI result Body Mass Index 22.0 <Neo Grimm MD - Last Filed: 08/03/21 06:40> Const Other: Awake and alert in no acute distress lying comfortably on the stretcher <Girish Murillo MD - Last Filed: 08/02/21 21:18> HENMT Other: Normocephalic atraumatic <Girish Murillo MD - Last Filed: 08/02/21 21:18> Eyes Other: Pupils equal round reactive to light. Extraocular muscles intact. No nystagmus <Girish Murillo MD - Last Filed: 08/02/21 21:18> Resp Other: Clear and equal bilaterally <Girish Murillo MD - Last Filed: 08/02/21 21:18> Cardio Other: Regular rate and rhythm without murmurs rubs or gallops <Girish Murillo MD - Last Filed: 08/02/21 21:18> GI Other: Soft nontender nondistended <Girish Murillo MD - Last Filed: 08/02/21 21:18> Skin Other: Warm pink and dry <Girish Murillo MD - Last Filed: 08/02/21 21:18> Neuro Other: Nonfocal neuro exam <Girish Murillo MD - Last Filed: 08/02/21 21:18> Psych Other: Patient is alert and oriented x3 however does state he is having difficulty remembering where he put his car. States he still feels slightly less sharp than normal <Girish Murillo MD - Last Filed: 08/02/21 21:18> Speech and movement: Clear speech present <Girish Murillo MD - Last Filed: 08/02/21 21:18> Course Course Course Narrative: Confusion Medication reaction Less likely stroke Electrolyte abnormality Toxic ingestion Substance use Alcohol intoxication Patient treated with normal saline. Currently blood pressure is 94/61. This is similar to prior baseline range. He is in no apparent distress. Lab more IV normal saline 21:17. Patient with inability urinate. Bladder scan showed 900 cc in the bladder. Matias catheter placed with over a Liter removed. Matias will remain in place. Patient's mental status is not improving he still seems confused to events and timeline. This seems slightly worse than when he arrived the 2nd time. For this reason attempted lumbar puncture. Patient has a history of multiple spinal fusions with hardware. Unable to get spinal fluid. Case discussed with Dr. Scruggs, hospitalist Service. We will observe patient for 6 hours for signs of improvement. If he does not improve he will be hospitalized for further treatment including probable lumbar puncture and MRI. Signed out at change of shift at 21:18 <Girish Murillo MD - Last Filed: 08/02/21 21:18> Reevaluation(s) Reevaluation #1: Patient ordered x3 no confusion noticed able to ambulate in the ER Matias catheter was removed urine drug screen shows fentanyl positive. Likely patient confusion 5 from fentanyl and other drugs which is taking for depression at this time there is no indication of encephalopathy or any infection will discharge patient home patient's C-reactive protein is only 0.51 <Neo Grimm MD - Last Filed: 08/03/21 06:40> Time: 05:03 <Neo Grimm MD - Last Filed: 08/03/21 06:40> Medical Decision Making Lab Data Lab results reviewed: Yes I reviewed the patient's lab results. <Neo Grimm MD - Last Filed: 08/03/21 06:40> Result diagrams: : 08/02/21 15:41 08/02/21 15:41 <Girish Murillo MD - Last Filed: 08/02/21 21:18> Labs: Lab Results 08/02/21 08/02/21 08/02/21 Range/Units 15:41 15:41 15:41 WBC 5.1 (4.8-10.8) X10*3/uL RBC 3.73 L (4.60-5.80) X10*6/uL Hgb 11.5 L (14.0-18.0) g/dl Hct 33.3 L (42.0-52.0) % MCV 89.3 (80.0-98.0) fL MCH 30.8 (27.0-33.0) pg MCHC 34.5 (31.0-36.0) g/dl RDW 12.8 (11.0-16.0) % Plt Count 167 D (160-400) X10*3/uL MPV 8.9 L (9.4-12.4) fL Immature Gran % (Auto) 0.2 (0.0-0.4) % Neut % (Auto) 72.8 (45-73) % Lymph % (Auto) 17.8 L (20-40) % [place] % (Auto) 7.8 (2-11) % Eos % (Auto) 1.0 (0-4) % Baso % (Auto) 0.4 (0-2) % Lymph # (Auto) 0.9 L (1.2-4.9) X10*3/uL [place] # (Auto) 0.4 (0.1-1.2) X10*3/uL Eos # (Auto) 0.1 (0.0-0.4) X10*3/uL Baso # (Auto) 0.0 (0.0-0.2) X10*3/uL Abs Immat Gran (auto) 0.01 (0.00-0.03) X10*3/uL Absolute Neuts (auto) 3.7 (2.0-8.3) x10*3/uL Absolute Nucleated RBC 0.000 (0.0-0.012) X10*3/uL Nucleated RBC % (auto) 0.0 (0.0-0.2) /100WBC Sodium 140 (135-145) mmol/L Potassium 4.2 (3.3-5.1) mmol/L Chloride 104 (96-108) mmol/L Carbon Dioxide 30 H (22-29) mmol/L Anion Gap 10 L (12-20) BUN 19 H (9-16) mg/dL Creatinine 1.16 (0.5-1.4) mg/dL Estim Creat Clear Calc 61.4 Estimated GFR > 60 Random Glucose 101 (60-115) mg/dL Calcium 9.3 D (8.4-10.2) mg/dL Total Bilirubin 0.6 (0.0-1.0) mg/dL AST 40 H D (5-37) U/L ALT 19 (0-40) U/L Alkaline Phosphatase 54 (39-117) U/L Ammonia 43 (13-55) umol/L C-Reactive Protein 0.51 H (< or = 0.50) mg/dL Total Protein 6.3 L (6.5-8.0) g/dL Albumin 3.9 (3.5-5.0) g/dL Urine Color Urine Appearance Urine pH (5.0-8.0) Ur Specific [place] (1.005-1.025) Urine Protein (NEG-TRACE) MG/DL Urine Glucose (UA) (NEG) MG/DL Urine Ketones (NEG) MG/DL Urine Blood (NEG) Urine Nitrite (NEG) Ur Leukocyte Esterase (NEG) Urine RBC (0) /HPF Urine WBC (0-4) /HPF Urine WBC Clumps Ur Squamous Epith Cells /LPF Ur Renal Epithelial Cell /LPF Urine Bacteria /LPF Urine Opiates Screen (Not Detect) Urine Fentanyl Screen (Not Detect) Ur Barbiturates Screen (Not Detect) Ur Phencyclidine Scrn (Not Detect) Ur Amphetamines Screen (Not Detect) U Benzodiazepines Scrn (Not Detect) Urine Cocaine Screen (Not Detect) U Marijuana (THC) Screen (Not Detect) Ethyl Alcohol mg/dL COVID-19 (MAT) (Negative) COVID-19 Clin Com 08/02/21 08/02/21 08/02/21 Range/Units 15:41 15:41 20:37 WBC (4.8-10.8) X10*3/uL RBC (4.60-5.80) X10*6/uL Hgb (14.0-18.0) g/dl Hct (42.0-52.0) % MCV (80.0-98.0) fL MCH (27.0-33.0) pg MCHC (31.0-36.0) g/dl RDW (11.0-16.0) % Plt Count (160-400) X10*3/uL MPV (9.4-12.4) fL Immature Gran % (Auto) (0.0-0.4) % Neut % (Auto) (45-73) % Lymph % (Auto) (20-40) % [place] % (Auto) (2-11) % Eos % (Auto) (0-4) % Baso % (Auto) (0-2) % Lymph # (Auto) (1.2-4.9) X10*3/uL [place] # (Auto) (0.1-1.2) X10*3/uL Eos # (Auto) (0.0-0.4) X10*3/uL Baso # (Auto) (0.0-0.2) X10*3/uL Abs Immat Gran (auto) (0.00-0.03) X10*3/uL Absolute Neuts (auto) (2.0-8.3) x10*3/uL Absolute Nucleated RBC (0.0-0.012) X10*3/uL Nucleated RBC % (auto) (0.0-0.2) /100WBC Sodium (135-145) mmol/L Potassium (3.3-5.1) mmol/L Chloride (96-108) mmol/L Carbon Dioxide (22-29) mmol/L Anion Gap (12-20) BUN (9-16) mg/dL Creatinine (0.5-1.4) mg/dL Estim Creat Clear Calc Estimated GFR Random Glucose (60-115) mg/dL Calcium (8.4-10.2) mg/dL Total Bilirubin (0.0-1.0) mg/dL AST (5-37) U/L ALT (0-40) U/L Alkaline Phosphatase (39-117) U/L Ammonia (13-55) umol/L C-Reactive Protein (< or = 0.50) mg/dL Total Protein (6.5-8.0) g/dL Albumin (3.5-5.0) g/dL Urine Color YELLOW Urine Appearance CLEAR Urine pH 6.0 (5.0-8.0) Ur Specific [place] 1.010 (1.005-1.025) Urine Protein NEG (NEG-TRACE) MG/DL Urine Glucose (UA) NEG (NEG) MG/DL Urine Ketones 15 (NEG) MG/DL Urine Blood 2+ H (NEG) Urine Nitrite NEG (NEG) Ur Leukocyte Esterase NEG (NEG) Urine RBC 5-9 H (0) /HPF Urine WBC 0-2 (0-4) /HPF Urine WBC Clumps NOTED Ur Squamous Epith Cells TRACE /LPF Ur Renal Epithelial Cell TRACE /LPF Urine Bacteria NONE /LPF Urine Opiates Screen (Not Detect) Urine Fentanyl Screen (Not Detect) Ur Barbiturates Screen (Not Detect) Ur Phencyclidine Scrn (Not Detect) Ur Amphetamines Screen (Not Detect) U Benzodiazepines Scrn (Not Detect) Urine Cocaine Screen (Not Detect) U Marijuana (THC) Screen (Not Detect) Ethyl Alcohol < 10 mg/dL COVID-19 (MAT) Negative (Negative) COVID-19 Clin Com See Note 08/03/21 Range/Units 03:44 WBC (4.8-10.8) X10*3/uL RBC (4.60-5.80) X10*6/uL Hgb (14.0-18.0) g/dl Hct (42.0-52.0) % MCV (80.0-98.0) fL MCH (27.0-33.0) pg MCHC (31.0-36.0) g/dl RDW (11.0-16.0) % Plt Count (160-400) X10*3/uL MPV (9.4-12.4) fL Immature Gran % (Auto) (0.0-0.4) % Neut % (Auto) (45-73) % Lymph % (Auto) (20-40) % [place] % (Auto) (2-11) % Eos % (Auto) (0-4) % Baso % (Auto) (0-2) % Lymph # (Auto) (1.2-4.9) X10*3/uL [place] # (Auto) (0.1-1.2) X10*3/uL Eos # (Auto) (0.0-0.4) X10*3/uL Baso # (Auto) (0.0-0.2) X10*3/uL Abs Immat Gran (auto) (0.00-0.03) X10*3/uL Absolute Neuts (auto) (2.0-8.3) x10*3/uL Absolute Nucleated RBC (0.0-0.012) X10*3/uL Nucleated RBC % (auto) (0.0-0.2) /100WBC Sodium (135-145) mmol/L Potassium (3.3-5.1) mmol/L Chloride (96-108) mmol/L Carbon Dioxide (22-29) mmol/L Anion Gap (12-20) BUN (9-16) mg/dL Creatinine (0.5-1.4) mg/dL Estim Creat Clear Calc Estimated GFR Random Glucose (60-115) mg/dL Calcium (8.4-10.2) mg/dL Total Bilirubin (0.0-1.0) mg/dL AST (5-37) U/L ALT (0-40) U/L Alkaline Phosphatase (39-117) U/L Ammonia (13-55) umol/L C-Reactive Protein (< or = 0.50) mg/dL Total Protein (6.5-8.0) g/dL Albumin (3.5-5.0) g/dL Urine Color Urine Appearance Urine pH (5.0-8.0) Ur Specific [place] (1.005-1.025) Urine Protein (NEG-TRACE) MG/DL Urine Glucose (UA) (NEG) MG/DL Urine Ketones (NEG) MG/DL Urine Blood (NEG) Urine Nitrite (NEG) Ur Leukocyte Esterase (NEG) Urine RBC (0) /HPF Urine WBC (0-4) /HPF Urine WBC Clumps Ur Squamous Epith Cells /LPF Ur Renal Epithelial Cell /LPF Urine Bacteria /LPF Urine Opiates Screen Not Detected (Not Detect) Urine Fentanyl Screen POSITIVE H (Not Detect) Ur Barbiturates Screen Not Detected (Not Detect) Ur Phencyclidine Scrn Not Detected (Not Detect) Ur Amphetamines Screen Not Detected (Not Detect) U Benzodiazepines Scrn Not Detected (Not Detect) Urine Cocaine Screen Not Detected (Not Detect) U Marijuana (THC) Screen Not Detected (Not Detect) Ethyl Alcohol mg/dL COVID-19 (MAT) (Negative) COVID-19 Clin Com <Girish Murillo MD - Last Filed: 08/02/21 21:18> Lab Results 08/02/21 08/02/21 08/02/21 Range/Units 15:41 15:41 15:41 WBC 5.1 (4.8-10.8) X10*3/uL RBC 3.73 L (4.60-5.80) X10*6/uL Hgb 11.5 L (14.0-18.0) g/dl Hct 33.3 L (42.0-52.0) % MCV 89.3 (80.0-98.0) fL MCH 30.8 (27.0-33.0) pg MCHC 34.5 (31.0-36.0) g/dl RDW 12.8 (11.0-16.0) % Plt Count 167 D (160-400) X10*3/uL MPV 8.9 L (9.4-12.4) fL Immature Gran % (Auto) 0.2 (0.0-0.4) % Neut % (Auto) 72.8 (45-73) % Lymph % (Auto) 17.8 L (20-40) % [place] % (Auto) 7.8 (2-11) % Eos % (Auto) 1.0 (0-4) % Baso % (Auto) 0.4 (0-2) % Lymph # (Auto) 0.9 L (1.2-4.9) X10*3/uL [place] # (Auto) 0.4 (0.1-1.2) X10*3/uL Eos # (Auto) 0.1 (0.0-0.4) X10*3/uL Baso # (Auto) 0.0 (0.0-0.2) X10*3/uL Abs Immat Gran (auto) 0.01 (0.00-0.03) X10*3/uL Absolute Neuts (auto) 3.7 (2.0-8.3) x10*3/uL Absolute Nucleated RBC 0.000 (0.0-0.012) X10*3/uL Nucleated RBC % (auto) 0.0 (0.0-0.2) /100WBC Sodium 140 (135-145) mmol/L Potassium 4.2 (3.3-5.1) mmol/L Chloride 104 (96-108) mmol/L Carbon Dioxide 30 H (22-29) mmol/L Anion Gap 10 L (12-20) BUN 19 H (9-16) mg/dL Creatinine 1.16 (0.5-1.4) mg/dL Estim Creat Clear Calc 61.4 Estimated GFR > 60 Random Glucose 101 (60-115) mg/dL Calcium 9.3 D (8.4-10.2) mg/dL Total Bilirubin 0.6 (0.0-1.0) mg/dL AST 40 H D (5-37) U/L ALT 19 (0-40) U/L Alkaline Phosphatase 54 (39-117) U/L Ammonia 43 (13-55) umol/L C-Reactive Protein 0.51 H (< or = 0.50) mg/dL Total Protein 6.3 L (6.5-8.0) g/dL Albumin 3.9 (3.5-5.0) g/dL Urine Color Urine Appearance Urine pH (5.0-8.0) Ur Specific [place] (1.005-1.025) Urine Protein (NEG-TRACE) MG/DL Urine Glucose (UA) (NEG) MG/DL Urine Ketones (NEG) MG/DL Urine Blood (NEG) Urine Nitrite (NEG) Ur Leukocyte Esterase (NEG) Urine RBC (0) /HPF Urine WBC (0-4) /HPF Urine WBC Clumps Ur Squamous Epith Cells /LPF Ur Renal Epithelial Cell /LPF Urine Bacteria /LPF Urine Opiates Screen (Not Detect) Urine Fentanyl Screen (Not Detect) Ur Barbiturates Screen (Not Detect) Ur Phencyclidine Scrn (Not Detect) Ur Amphetamines Screen (Not Detect) U Benzodiazepines Scrn (Not Detect) Urine Cocaine Screen (Not Detect) U Marijuana (THC) Screen (Not Detect) Ethyl Alcohol mg/dL COVID-19 (MAT) (Negative) COVID-19 Clin Com 08/02/21 08/02/21 08/02/21 Range/Units 15:41 15:41 20:37 WBC (4.8-10.8) X10*3/uL RBC (4.60-5.80) X10*6/uL Hgb (14.0-18.0) g/dl Hct (42.0-52.0) % MCV (80.0-98.0) fL MCH (27.0-33.0) pg MCHC (31.0-36.0) g/dl RDW (11.0-16.0) % Plt Count (160-400) X10*3/uL MPV (9.4-12.4) fL Immature Gran % (Auto) (0.0-0.4) % Neut % (Auto) (45-73) % Lymph % (Auto) (20-40) % [place] % (Auto) (2-11) % Eos % (Auto) (0-4) % Baso % (Auto) (0-2) % Lymph # (Auto) (1.2-4.9) X10*3/uL [place] # (Auto) (0.1-1.2) X10*3/uL Eos # (Auto) (0.0-0.4) X10*3/uL Baso # (Auto) (0.0-0.2) X10*3/uL Abs Immat Gran (auto) (0.00-0.03) X10*3/uL Absolute Neuts (auto) (2.0-8.3) x10*3/uL Absolute Nucleated RBC (0.0-0.012) X10*3/uL Nucleated RBC % (auto) (0.0-0.2) /100WBC Sodium (135-145) mmol/L Potassium (3.3-5.1) mmol/L Chloride (96-108) mmol/L Carbon Dioxide (22-29) mmol/L Anion Gap (12-20) BUN (9-16) mg/dL Creatinine (0.5-1.4) mg/dL Estim Creat Clear Calc Estimated GFR Random Glucose (60-115) mg/dL Calcium (8.4-10.2) mg/dL Total Bilirubin (0.0-1.0) mg/dL AST (5-37) U/L ALT (0-40) U/L Alkaline Phosphatase (39-117) U/L Ammonia (13-55) umol/L C-Reactive Protein (< or = 0.50) mg/dL Total Protein (6.5-8.0) g/dL Albumin (3.5-5.0) g/dL Urine Color YELLOW Urine Appearance CLEAR Urine pH 6.0 (5.0-8.0) Ur Specific [place] 1.010 (1.005-1.025) Urine Protein NEG (NEG-TRACE) MG/DL Urine Glucose (UA) NEG (NEG) MG/DL Urine Ketones 15 (NEG) MG/DL Urine Blood 2+ H (NEG) Urine Nitrite NEG (NEG) Ur Leukocyte Esterase NEG (NEG) Urine RBC 5-9 H (0) /HPF Urine WBC 0-2 (0-4) /HPF Urine WBC Clumps NOTED Ur Squamous Epith Cells TRACE /LPF Ur Renal Epithelial Cell TRACE /LPF Urine Bacteria NONE /LPF Urine Opiates Screen (Not Detect) Urine Fentanyl Screen (Not Detect) Ur Barbiturates Screen (Not Detect) Ur Phencyclidine Scrn (Not Detect) Ur Amphetamines Screen (Not Detect) U Benzodiazepines Scrn (Not Detect) Urine Cocaine Screen (Not Detect) U Marijuana (THC) Screen (Not Detect) Ethyl Alcohol < 10 mg/dL COVID-19 (MAT) Negative (Negative) COVID-19 Clin Com See Note 08/03/21 Range/Units 03:44 WBC (4.8-10.8) X10*3/uL RBC (4.60-5.80) X10*6/uL Hgb (14.0-18.0) g/dl Hct (42.0-52.0) % MCV (80.0-98.0) fL MCH (27.0-33.0) pg MCHC (31.0-36.0) g/dl RDW (11.0-16.0) % Plt Count (160-400) X10*3/uL MPV (9.4-12.4) fL Immature Gran % (Auto) (0.0-0.4) % Neut % (Auto) (45-73) % Lymph % (Auto) (20-40) % [place] % (Auto) (2-11) % Eos % (Auto) (0-4) % Baso % (Auto) (0-2) % Lymph # (Auto) (1.2-4.9) X10*3/uL [place] # (Auto) (0.1-1.2) X10*3/uL Eos # (Auto) (0.0-0.4) X10*3/uL Baso # (Auto) (0.0-0.2) X10*3/uL Abs Immat Gran (auto) (0.00-0.03) X10*3/uL Absolute Neuts (auto) (2.0-8.3) x10*3/uL Absolute Nucleated RBC (0.0-0.012) X10*3/uL Nucleated RBC % (auto) (0.0-0.2) /100WBC Sodium (135-145) mmol/L Potassium (3.3-5.1) mmol/L Chloride (96-108) mmol/L Carbon Dioxide (22-29) mmol/L Anion Gap (12-20) BUN (9-16) mg/dL Creatinine (0.5-1.4) mg/dL Estim Creat Clear Calc Estimated GFR Random Glucose (60-115) mg/dL Calcium (8.4-10.2) mg/dL Total Bilirubin (0.0-1.0) mg/dL AST (5-37) U/L ALT (0-40) U/L Alkaline Phosphatase (39-117) U/L Ammonia (13-55) umol/L C-Reactive Protein (< or = 0.50) mg/dL Total Protein (6.5-8.0) g/dL Albumin (3.5-5.0) g/dL Urine Color Urine Appearance Urine pH (5.0-8.0) Ur Specific [place] (1.005-1.025) Urine Protein (NEG-TRACE) MG/DL Urine Glucose (UA) (NEG) MG/DL Urine Ketones (NEG) MG/DL Urine Blood (NEG) Urine Nitrite (NEG) Ur Leukocyte Esterase (NEG) Urine RBC (0) /HPF Urine WBC (0-4) /HPF Urine WBC Clumps Ur Squamous Epith Cells /LPF Ur Renal Epithelial Cell /LPF Urine Bacteria /LPF Urine Opiates Screen Not Detected (Not Detect) Urine Fentanyl Screen POSITIVE H (Not Detect) Ur Barbiturates Screen Not Detected (Not Detect) Ur Phencyclidine Scrn Not Detected (Not Detect) Ur Amphetamines Screen Not Detected (Not Detect) U Benzodiazepines Scrn Not Detected (Not Detect) Urine Cocaine Screen Not Detected (Not Detect) U Marijuana (THC) Screen Not Detected (Not Detect) Ethyl Alcohol mg/dL COVID-19 (MAT) (Negative) COVID-19 Clin Com <Neo Grimm MD - Last Filed: 08/03/21 06:40> Discharge Plan Discharge Clinical Impression: History of substance abuse, Altered mental status <Girish Murillo MD - Last Filed: 08/02/21 21:18> Patient Disposition: Home, Self-Care <Girish Murillo MD - Last Filed: 08/02/21 21:18> Instructions: Polysubstance Abuse (ED), Altered Mental Status (ED) <Girish Murillo MD - Last Filed: 08/02/21 21:18> Additional Instructions: Follow-up with detox/psychiatrist <Girish Murillo MD - Last Filed: 08/02/21 21:18> Prescriptions: No Action bupropion HCl 300 mg tablet extended release 24 hr 300 mg PO QAM Qty: 90 0RF valacyclovir 500 mg tablet 500 mg PO DAILY Qty: 90 0RF trazodone 100 mg tablet 200 mg PO BEDTIME Qty: 60 0RF amitriptyline 75 mg tablet 75 mg PO BEDTIME Qty: 30 0RF quetiapine 100 mg Tablet 100 mg PO BEDTIME Qty: 15 1RF lamotrigine 25 mg Tablet 25 mg PO BEDTIME Qty: 15 1RF divalproex 500 mg Tablet Extended Release 24 Hr 500 mg PO BEDTIME Qty: 15 1RF buprenorphine-naloxone 8-2 mg Tablet, Sublingual 1 tab sublingual TID Qty: 0 0RF baclofen 10 mg tablet 10 mg PO TID 0RF gabapentin 800 mg tablet 800 mg PO TID 30 Days Qty: 90 2RF <Girish Murillo MD - Last Filed: 08/02/21 21:18> Interventions: ED Discharge Assessment Last Done: 08/03/21 05:46 <Girish Murillo MD - Last Filed: 08/02/21 21:18> Discharge Date/Time: 08/03/21 05:48 <Girish Murillo MD - Last Filed: 08/02/21 21:18>
[2021-08-02 15:51] LABS: MANUAL DIFF FLAG NO
[2021-08-02 15:53] LABS: Hematocrit 33.3 % (42.0-52.0); Hemoglobin 11.5 g/dl (14.0-18.0); Mean Corpuscular HGB Conc 34.5 g/dl (31.0-36.0); Mean Corpuscular Hemoglobin 30.8 pg (27.0-33.0); Mean Corpuscular Volume 89.3 fL (80.0-98.0); Platelet Count 167 X10*3/uL (160-400); Red Blood Count 3.73 X10*6/uL (4.60-5.80); Red Cell Distribution Width 12.8 % (11.0-16.0); White Blood Count 5.1 X10*3/uL (4.8-10.8)
[2021-08-02] MEDS: 0.9 % Sodium Chloride 1,000 ML 999 ML IV ×2 (15:53→19:25)
[2021-08-02 15:54] LABS: Basophils Percent Auto 0.4 % (0-2); Eosinophils Absolute Auto 0.1 X10*3/uL (0.0-0.4); Imm Gran Abs Auto 0.01 X10*3/uL (0.00-0.03); Imm Gran Pct Auto 0.2 % (0.0-0.4); Lymphocytes Absolute Auto 0.9 X10*3/uL (1.2-4.9); Lymphocytes Percent Auto 17.8 % (20-40); Mean Platelet Volume 8.9 fL (9.4-12.4); Monocytes Absolute Auto 0.4 X10*3/uL (0.1-1.2); Monocytes Percent Auto 7.8 % (2-11); Neutrophils Absolute Auto 3.7 x10*3/uL (2.0-8.3); Neutrophils Percent Auto 72.8 % (45-73)
[2021-08-02 16:02] LABS: Ammonia 43 umol/L (13-55)
[2021-08-02 16:07] LABS: Ethanol < 10 mg/dL
[2021-08-02 16:11] LABS: Alanine Aminotransferase 19 U/L (0-40); Albumin Level 3.9 g/dL (3.5-5.0); Alkaline Phosphatase 54 U/L (39-117); Anion Gap 10 (12-20); Aspartate Amino Transferase 40 U/L (5-37); Bilirubin Total 0.6 mg/dL (0.0-1.0); Blood Urea Nitrogen 19 mg/dL (9-16); Calcium 9.3 mg/dL (8.4-10.2); Carbon Dioxide 30 mmol/L (22-29); Chloride 104 mmol/L (96-108); Creatinine Clr Calc Pharmacy 61.4; Estimated Glomerular Filt Rate > 60; Glucose Random 101 mg/dL (60-115); Potassium 4.2 mmol/L (3.3-5.1); Sodium 140 mmol/L (135-145); Total Protein 6.3 g/dL (6.5-8.0)
[2021-08-02 16:15] LABS: COVID-19 Test Negative (Negative)
[2021-08-02 17:59] VITALS: BP 94/61; PULSE 80; RESP 18; O2SAT 96
--- NOTE | 2021-08-02 19:39 | PC.NURSE ---
Patient came via ambulance knew he was in the hospital but wasn't sure which one. He stated he did not want to stay. Patient got 2 liters of normal saline and has not voided. Patient denies any pain, sob, or dizziness. Stated he came out of office and couldn't find his car. Will continue with plan of care.
[2021-08-02 20:52] LABS: Appearance Urine CLEAR; Color Urine YELLOW; Glucose Urine UA NEG (NEG); Leukocyte Esterase Urine NEG (NEG); Nitrite Urine NEG (NEG); UACC Culture Trigger NO; Urine Blood 2+ (NEG); Urine Ketones 15 MG/DL (NEG); Urine Protein NEG (NEG-TRACE)
[2021-08-02 21:20] LABS: Renal Epithelial Cells Urine TRACE /LPF; Squamous Epithelial Cell Urine TRACE /LPF; WBC Urine 0-2 /HPF (0-4)
[2021-08-02 21:21] LABS: WBC Clumps Urine NOTED
[2021-08-02] MEDS: Acyclovir Sodium 500 MG in Dextrose 5 % 100 ML 110 MG IV (22:49)
--- NOTE | 2021-08-02 22:52 | PC.NURSE ---
medicated per provider order.
[2021-08-02 23:19] LABS: C Reactive Protein 0.51 mg/dL (< or = 0.50)
[2021-08-03 02:00] VITALS: BP 109/70; PULSE 69; RESP 7; TEMP 36.4; O2SAT 98
[2021-08-03 04:00] VITALS: BP 121/81; PULSE 77; RESP 13; TEMP 36.5; O2SAT 99
[2021-08-03 04:04] LABS: Amphetamine Screen Urine Not Detected (Not Detect); Barbiturates, Urine Not Detected (Not Detect); Benzodiazepines Screen Urine Not Detected (Not Detect); Cannabinoid Screen Urine Not Detected (Not Detect); Cocaine Screen Urine Not Detected (Not Detect); Fentanyl, urine POSITIVE (Not Detect); Opiate Screen Urine Not Detected (Not Detect); Phencyclidine Screen Urine Not Detected (Not Detect)
--- NOTE | 2021-08-03 04:23 | PC.NURSE ---
This RN resuming care @ [id number]. at bedside for reeval, pt now CAOx4. Pt able to ambulate with a steady gait. Per MD, awaiting [facility] results prior to plan for discharge. Matias removed per pt request.
--- NOTE | 2021-08-03 05:04 | PC.NURSE ---
at bedside. Plan for DC @ 0600.
== END 2021-08-03 05:48 | disposition home or self-care (01) ==
PROVIDERS: Emergency Provider Emergency Medicine; PCP Internal Medicine
DX: R41.82 Altered mental status, unspecified (principal); R41.0 Disorientation, unspecified; R39.198 Other difficulties with micturition; F11.20 Opioid dependence, uncomplicated; Z98.1 Arthrodesis status; Z20.822 Contact with and (suspected) exposure to COVID-19
CPT/HCPCS: 36415; 51702; 62270; 70450; 80053; 80307; 81001; 81003; 82077; 82140; 85025; 86140; 87635; 96361; 96365; 99285; J0133

== ENCOUNTER → 2021-08-10 13:38 | Outpatient (BNVA) | payer OTHER, SELFPAY | PROVIDERS: Visit Provider Nurse Practitioner Psychiatric/Mental Health | DX: Z51.81 Encounter for therapeutic drug level monitoring (principal); F11.20 Opioid dependence, uncomplicated | CPT/HCPCS: 80305; 99212 ==

== ENCOUNTER → 2021-08-17 14:54 | Outpatient (BNVA) | payer OTHER, SELFPAY | PROVIDERS: Visit Provider Nurse Practitioner Psychiatric/Mental Health | DX: Z51.81 Encounter for therapeutic drug level monitoring (principal); F11.20 Opioid dependence, uncomplicated | CPT/HCPCS: 80305; 99211 ==

== ENCOUNTER → 2021-08-31 14:30 | Outpatient (BNVA) | payer OTHER, SELFPAY | PROVIDERS: PCP Internal Medicine; Visit Provider Nurse Practitioner Psychiatric/Mental Health | DX: F11.20 Opioid dependence, uncomplicated (principal) | CPT/HCPCS: 80305; 99212 ==

== ENCOUNTER → 2021-09-28 09:51 | Outpatient (BNVA) | payer OTHER, SELFPAY | PROVIDERS: PCP Internal Medicine; Visit Provider Nurse Practitioner Psychiatric/Mental Health | DX: Z51.81 Encounter for therapeutic drug level monitoring (principal); F11.20 Opioid dependence, uncomplicated | CPT/HCPCS: 80305; 99212 ==

== ENCOUNTER → 2021-10-05 09:55 | Outpatient (BNVA) | payer OTHER, SELFPAY | PROVIDERS: PCP Internal Medicine; Visit Provider Nurse Practitioner Psychiatric/Mental Health | DX: Z51.81 Encounter for therapeutic drug level monitoring (principal); F11.20 Opioid dependence, uncomplicated | CPT/HCPCS: 80305; 99212 ==

== ENCOUNTER → 2021-10-12 09:58 | Outpatient (BNVA) | payer OTHER, SELFPAY | PROVIDERS: PCP Internal Medicine; Visit Provider Nurse Practitioner Psychiatric/Mental Health | DX: F11.20 Opioid dependence, uncomplicated (principal) | CPT/HCPCS: 80305; 99212 ==

== ENCOUNTER → 2021-11-09 09:50 | Outpatient (BNVA) | payer OTHER, SELFPAY | PROVIDERS: Visit Provider Nurse Practitioner Psychiatric/Mental Health | DX: F11.20 Opioid dependence, uncomplicated (principal) | CPT/HCPCS: 99212 ==

== ENCOUNTER → 2021-11-27 08:53 | Outpatient (BNVA) | payer OTHER, SELFPAY | PROVIDERS: PCP Internal Medicine; Visit Provider Nurse Practitioner Psychiatric/Mental Health | DX: Z51.81 Encounter for therapeutic drug level monitoring (principal); F11.20 Opioid dependence, uncomplicated | CPT/HCPCS: 80305; 96372; 99212 ==

== ENCOUNTER → 2021-12-25 09:13 | Outpatient (BNVA) | payer OTHER, SELFPAY | PROVIDERS: PCP Internal Medicine; Visit Provider Nurse Practitioner Psychiatric/Mental Health | DX: F11.20 Opioid dependence, uncomplicated (principal) | CPT/HCPCS: 80305; 99212 ==

== ENCOUNTER → 2022-01-08 13:19 | Outpatient (BNVA) | payer OTHER, SELFPAY | PROVIDERS: PCP Internal Medicine; Visit Provider Nurse Practitioner Psychiatric/Mental Health | DX: F11.20 Opioid dependence, uncomplicated (principal) | CPT/HCPCS: 80305; 96372; 99212; Q9992 ==

== ENCOUNTER → 2022-02-05 11:41 | Outpatient (BNVA) | payer OTHER, SELFPAY | PROVIDERS: PCP Internal Medicine; Visit Provider Nurse Practitioner Psychiatric/Mental Health | DX: Z51.81 Encounter for therapeutic drug level monitoring (principal); F11.20 Opioid dependence, uncomplicated | CPT/HCPCS: 80305; 96372; 99212 ==